=== PATIENT | female | born 1955 | race Caucasian/White ===

== ENCOUNTER 2016-12-17 09:55 | Emergency (ER) | payer BC ==
[2016-12-17 10:05] VITALS: BP 151/83
--- NOTE | 2016-12-17 10:26 | UC ---
Shoulder Pain HPI - HPI Summary HPI Summary: 61 Y/O female being seen for C/O left shoulder pain with decreased range of motion. Unable to lift arm above chest level in any direction due to pain that radiates from anterior shoulder to left axilla. Denies injury or trauma. denies pain at rest. States hand feels "numb" at times. full movement and tactile feeling in hands during this visit. No swelling or bruising. blood pressure is elevated. Pt states that her PCP has asked her to monitor and she has a follow up appointment this week to review serial blood pressures. Medications reviewed at this visit. - History of Current Complaint Chief Complaint: UCUpperExtremity Stated Complaint: SHOULDER PAIN Time Seen by Provider: 12/17/16 09:59 Hx Obtained From: Patient ?: No Onset/Duration: Sudden Onset Timing: Constant Severity Initially: Mild Severity Currently: Mild Location Of Pain: Is Discrete @ - L shoulder to axilla Pain Intensity: 3 Pain Scale Used: 0-10 Numeric Character: Sharp Aggravating Factor(s): Movement Alleviating Factor(s): Rest - Risk Factors Non-Orthopedic Risk Factor: Negative DVT Risk Factors: Negative Septic Arthritis Risk Factor: Negative - Allergies/Home Medications Allergies/Adverse Reactions: Allergies Allergy/AdvReac Type Severity Reaction Status Date / Time No Known Allergies Allergy Verified 11/07/14 09:01 Home Medications: Home Medications Jordan-3 Fatty Acids [Jordan 3 1000 mg] 1,000 mg PO DAILY 12/17/16 [History Confirmed 12/17/16] PMH/Surg Hx/FS Hx/Imm Hx Previously Healthy: Yes Respiratory History: Asthma - no current exacerbation - Surgical History Surgical History: Yes Surgery Procedure, Year, and Place: tubal ligation. sinus surgery - Family History Known Family History: Positive: Cardiac Disease, Hypertension - Social History Alcohol Use: Weekly Substance Use Type: None Smoking Status (MU): Never Smoked Tobacco Review of Systems Constitutional: Negative Skin: Negative Eyes: Negative ENT: Negative Respiratory: Negative Cardiovascular: Negative Gastrointestinal: Negative Genitourinary: Negative Motor: Decreased ROM - Left arm Neurovascular: Negative Musculoskeletal: Negative Neurological: Negative Psychological: Negative All Other Systems Reviewed And Are Negative: Yes Physical Exam Triage Information Reviewed: Yes Appearance: Well-Appearing Vital Signs: Initial Vital Signs Temp 97.7 F 12/17/16 09:59 Pulse 87 12/17/16 09:59 Resp 18 12/17/16 09:59 BP 151/83 12/17/16 09:59 Pulse Ox 97 12/17/16 09:59 Vital Signs Reviewed: Yes Eye Exam: Normal Eyes: Positive: Conjunctiva Clear ENT Exam: Normal Neck exam: Normal Respiratory Exam: Normal Respiratory: Positive: Lungs clear Cardiovascular Exam: Normal Cardiovascular: Positive: RRR Abdominal Exam: Normal Abdomen Description: Positive: Nontender Musculoskeletal Exam: Other Musculoskeletal: Positive: ROM Limited @ - Left arm Neurological: Positive: Alert Psychological Exam: Normal Skin Exam: Normal Shoulder Course/Dx - Differential Dx/Diagnosis Differential Diagnosis/HQI/PQRI: Arthritis, Bursitis, Sprain, Strain, Tendonitis Provider Diagnoses: Shoulder strain Discharge - Discharge Plan Condition: Stable Disposition: HOME Patient Education Materials: Osteoarthritis (ED), Shoulder Pain (ED) Referrals: Laura Laurent MD [Primary Care Provider] - Maryjane Trevizo MD [Medical Doctor] - Additional Instructions: Your shoulder x ray shows no acute injury to the bones of your shoulder. Please follow with Dr Trevizo (orthopedics). Return to the ER for worsening pain or loss of strength / sensation to arm. Follow up with your primary care physician for blood pressure check. You may continue Ibuprofen , do not exceed 600mg every 8 hours.
--- NOTE | 2016-12-17 11:03 | RAD ---
HISTORY: Left shoulder pain COMPARISONS: None VIEWS: 5, Frontal internal rotation, external rotation, outlet, and axillary views of the left shoulder FINDINGS: BONE DENSITY: Normal. BONES: There is no displaced fracture. JOINTS: There is mild osteoarthritis of the left AC joint. ALIGNMENT: There is no dislocation. SOFT TISSUES: Unremarkable. OTHER FINDINGS: None. IMPRESSION: NO ACUTE OSSEOUS INJURY. IF SYMPTOMS PERSIST, RECOMMEND REPEAT IMAGING.
== END 2016-12-17 11:18 | disposition home or self-care (01) ==
LOC: UCEAST 09:55
DX: S46.912A Strain of unspecified muscle, fascia and tendon at shoulder and upper arm level, left arm, initial encounter (principal); X58.XXXA Exposure to other specified factors, initial encounter; J45.909 Unspecified asthma, uncomplicated
CPT/HCPCS: 99211; G0463

== ENCOUNTER 2018-01-08 06:48 | Inpatient (IN) | payer BC ==
--- NOTE | 2018-01-08 07:24 | ED ---
Shortness of Breath - HPI Summary HPI Summary: Patient is a 62 y/o F w/ c/o SOB upon exertion onsetting yesterday morning. She reports that tasks such as getting up to let the dog out of the house produces SOB, tiredness, wheezing and cold sweats. Patient reports that lying flat does not produce SOB but notes that she feels dizzy for some time when going to lie down. Patient notes RLE pain yesterday and she is concerned it is swollen. She denies recent long travel/long car rides/flights. Patient denies N/V/D. In the room, while lying in the bed, she states she feels funny. Patient denies Hx of HTN, diabetes, and HLD. PMHx of asthma is noted. Current Sx are reported to be worse than her typical asthma attacks. Patient states that she took her inhaler this morning with no relief in Sx. On triage, pain is denied. Home medications and allergies are noted. In room, vitals are 113 pulse, 97% o2, and 128/107 BP. Initially, patient was 87% on RA and was placed on 2LNC, which improved o2 to 97%. - History of Current Complaint Chief Complaint: EDShortnessOfBreath Time Seen by Provider: 01/08/18 07:10 Hx Obtained From: Patient Onset/Duration: Lasting Days - yesterday morning Current Severity: None - pain denied Aggrevating Factors: Other - exertion Alleviating Factors: Nothing Associated Signs & Symptoms: Wheezing, Diaphoresis - "cold sweats", Edema - RLE - Allergy/Home Medications Allergies/Adverse Reactions: Allergies Allergy/AdvReac Type Severity Reaction Status Date / Time No Known Allergies Allergy Verified 01/08/18 07:13 PMH/Surg Hx/FS Hx/Imm Hx Endocrine/Hematology History: Denies: Hx Diabetes Cardiovascular History: Denies: Hx Hypertension Respiratory History: Reports: Hx Asthma - Surgical History Surgery Procedure, Year, and Place: tubal ligation. sinus surgery - Immunization History Immunizations Up to Date: Yes Infectious Disease History: No Infectious Disease History: Denies: Hx Clostridium Difficile, Hx Hepatitis, Hx Human Immunodeficiency Virus (HIV), Hx of Known/Suspected MRSA, Hx Shingles, Hx Tuberculosis, Traveled Outside the [place] in Last 30 Days - Family History Known Family History: Positive: Cardiac Disease, Hypertension - Social History Alcohol Use: Weekly Substance Use Type: Reports: None Smoking Status (MU): Never Smoked Tobacco Review of Systems Positive: Fatigue - tiredness , Skin Diaphoresis Positive: Shortness Of Breath, Other - wheezing Negative: Vomiting, Diarrhea, Nausea Positive: Edema - RLE , Other - RLE pain Neurological: Other - dizziness All Other Systems Reviewed And Are Negative: Yes Physical Exam - Summary Physical Exam Summary: VITAL SIGNS: Reviewed. GENERAL: Patient is a well-developed and nourished female who is lying comfortable in the stretcher. Patient has nasal cannula and is in some slight respiratory distress but patient is capable of speaking in complete sentences. HEAD AND FACE: No signs of trauma. No ecchymosis, hematomas or skull depressions. No sinus tenderness. EYES: PERRLA, EOMI x 2, No injected conjunctiva, no nystagmus. EARS: Hearing grossly intact. Ear canals and tympanic membranes are within normal limits. MOUTH: Oropharynx within normal limits. NECK: Supple, trachea is midline, no adenopathy, no JVD, no carotid bruit, no c- spine tenderness, neck with full ROM. CHEST: Symmetric, no tenderness at palpation LUNGS: Clear to auscultation bilaterally. No wheezing or crackles. CVS: Regular rate and rhythm, S1 and S2 present, no murmurs or gallops appreciated. ABDOMEN: Soft, non-tender. No signs of distention. No rebound no guarding, and no masses palpated. Bowel sounds are normal. EXTREMITIES: FROM in all major joints, no edema, no cyanosis or clubbing. There is no calf tenderness and negative Homans sign. NEURO: Alert and oriented x 3. No acute neurological deficits. Speech is normal and follows commands. SKIN: Dry and warm Triage Information Reviewed: Yes Vital Signs On Initial Exam: Initial Vitals Temp Pulse Resp BP Pulse Ox 97.4 F 123 24 119/95 92 01/08/18 06:50 01/08/18 06:50 01/08/18 06:50 01/08/18 06:50 01/08/18 06:50 Vital Signs Reviewed: Yes Diagnostics - Vital Signs Vital Signs Temp Pulse Resp BP Pulse Ox 01/08/18 06:50 97.4 F 123 24 119/95 92 - Laboratory Result Diagrams: 01/08/18 07:32 01/09/18 05:20 Lab Statement: Any lab studies that have been ordered have been reviewed, and results considered in the medical decision making process. - Radiology CXR Xray Interpretation: No Acute Changes Radiology Interpretation Completed By: Radiologist - stigmata of obstructive lung disease; no acute pulmonary or cardiac process evident. This report was reviewed by ed physician. - CT CTA Chest/Thorax CT Interpretation: Positive (See Comments) CT Interpretation Completed By: Radiologist - Large saddle embolus involving both main pulmonary arteries extending into both lower lobe pulmonary arteries. Other scattered filling defects are noted in the left upper lobe and right middle lobe pulmonary arteries. This report was reviewed by ed physician. - EKG 0730 Cardiac Rate: Tachycardia - rate of 112 BPM EKG Rhythm: Sinus Tachycardia EKG Interpretation: no ST elevation, normal axis Re-Evaluation - Re-Evaluation First Eval Re-Evaluation Time: 08:44 Change: Unchanged Comment: Discussed results of CTA with patient as well as further plans of care. Patient will likely be admitted for further workup. Benefits of blood thinners and TPA were discussed as well. Patient understands and is agreeable with this plan. Patient has no history of bleeding, recent surgeries, seizures, CVA. Course/Dx - Course Assessment/Plan: This patient is a 62-year-old female who presents to the emergency department with a chief complaint of having shortness of breath. She reports that the shortness of breath started yesterday morning when she was walking to the door. The shortness of breath usually is on exertion. The patient has history of asthma which is well controlled and she only uses an inhaler occasionally. She denies any wheezing, denies any coughing, denies any chest pain. She denies any recent traveling however she reports some pain in the right lower extremity yesterday. On arrival the patient was saturating 87% therefore the patient was placed in 2 L of oxygen. She has some respiratory distress but she is able to speak in full sentences. The physical exam: Lungs are clear to auscultation bilateral. She has no wheezing or crackles. There is no calf tenderness and negative Homans sign. EKG is a sinus tachycardia [address] elevations. Positive right side deviation. Blood work without any significant abnormality except for WBCs of 10.9, platelets 135, d- dimer 1050, glucose 129, lactic acid 2.2, troponin 0.25, BP 242. Chest x-ray impression: Stigmata of obstructive lung disease. No acute pulmonary or cardiac process. Chest CT impression large central emboli involving both main pulmonary arteries extending into both lower lobe pulmonary arteries. Otherwise is currently filling defects are noted in the left upper lobe and the right middle lobe pulmonary arteries. The patient was started with a heparin drip and heparin bolus. An echocardiogram was ordered. This will confirm the right side straining. I spoke with the patient about getting tPA and heparin which increases the risk of bleeding. Patient has no history of bleeding, recent surgeries, seizures, CVA. I discussed the case with Dr. Ghotra on the ICU services and he will come and talk to the patient again to see if she wants to give the TPA at this point. I believe that the patient would benefit for TPA at this point. She is also accepted to the ICU services under Dr. Ghotra s services. At this point the patient is hemodynamically stable alert and oriented 3. The patients care will continue with Dr. Ghotra at this point. 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 Foss was consulted on patient's case at 914. He accepts patient for admission to [facility] [place] - Critical Care Time Critical Care Time: 75-104 min Discharge - Sign-Out/Discharge Documenting (check all that apply): Patient Departure - admit - Discharge Plan Condition: Fair Disposition: ADMITTED TO [facility] - Billing Disposition and Condition Condition: FAIR Disposition: Admitted to [facility] - Attestation Statements Document Initiated by Scribe: Yes Documenting Scribe: Sarath Del Cid Provider For Whom Kadeem is Documenting (Include Credential): Elbert Hung MD Scribe Attestation: I, Sarath Del Cid, scribed for Elbert Hung MD on 01/09/18 at 0804. Scribe Documentation Reviewed: Yes Provider Attestation: The documentation as recorded by the Sarath adler accurately reflects the service I personally performed and the decisions made by me, Elbert Hung MD
[2018-01-08 07:43] LABS: ABS Basophils 0.1 10^3/ul (0-0.2); ABS Eosinophils 0.2 10^3/ul (0-0.6); ABS Lymphocytes 1.7 10^3/ul (1.0-4.8); ABS Monocytes 0.6 10^3/ul (0-0.8); ABS Neutrophils 8.4 10^3/ul (1.5-7.7); ABS Nucleated RBC 0 10^3/ul; Eosinophil % 1.6 % (0-6); Hematocrit 42 % (35-47); Lymphocyte % 15.7 % (25-47); Mean Corpuscular HGB Conc 34 g/dl (31-36); Mean Corpuscular Hemoglobin 32 pg (27-31); Mean Corpuscular Volume 95 fL (80-97); Mean Platelet Volume 7.8 um3 (7.4-10.4); Nucleated Red Blood Cells % 0; Platelet Count 135 10^3/ul (150-450); Red Blood Count 4.38 10^6/ul (4.00-5.40); Red Cell Distribution Width 14 % (10.5-15); White Blood Count 10.9 10^3/ul (3.5-10.8)
[2018-01-08 07:58] LABS: EGFR Non-African American 62.2 (>60)
[2018-01-08] MEDS ORDERED: Iohexol 350* (CONTRAST) 500 ML MDV IV ONE (08:02)
--- NOTE | 2018-01-08 08:09 | RAD ---
INDICATION: Shortness of breath worsening over the past 2 days. History of asthma. COMPARISON: September 23, 2005 TECHNIQUE: Dual energy PA and routine lateral views of the chest were obtained. REPORT: Elevated lung volumes. Costochondral calcifications noted. No focal pulmonary lesions or alveolar consolidation. Rarefaction of mid to upper lung zone interstitial markings. Negative for pleural effusion or pneumothorax. The heart, pulmonary vasculature, and mediastinal contours are unremarkable. Thoracic degenerative spondylosis. IMPRESSION: #. Stigmata of obstructive lung disease. No acute pulmonary or cardiac process evident.
--- NOTE | 2018-01-08 08:39 | RAD ---
Indication: Shortness of breath, hypoxia. Contrast: Administered 71.1 ml of OMNIPAQUE 350 mg/ml CTA of the chest performed after IV contrast administration. Coronal and sagittal reconstructed images were obtained. The pulmonary arterial tree is well opacified. There is a saddle embolus crossing both left and right pulmonary arteries. Filling defects are noted in the right lower lobe artery. Filling defects are noted in the left lower lobe pulmonary artery. This extends into the segmental arteries. There is likely clot in the left upper lobe pulmonary arteries as well as in the right middle lobe pulmonary arteries. The thoracic aorta demonstrates no evidence of aortic dissection or aneurysmal dilatation. There is no mediastinal adenopathy noted. The trachea and major bronchi are patent. The lung escamilla show no pleural fluid, pneumonia or pneumothorax. The visualized abdominal organs are unremarkable. IMPRESSION: Large saddle embolus involving both main pulmonary arteries extending into both lower lobe pulmonary arteries. Other scattered filling defects are noted in the left upper lobe and right middle lobe pulmonary arteries.
[2018-01-08] MEDS ORDERED: Perflutren Lipid Microsphere* 3 ML VIAL ONE (09:12)
[2018-01-08] MEDS ORDERED: Heparin VIAL(*) 5000 UNITS/ML VIAL (FIVE THOUSAND) ONE (09:36)
--- NOTE | 2018-01-08 09:52 | HP ---
H&P (Free Text) History and Physical: [facility] History & Physical CC: Shortness of breath HPI: 62F with asthma presents with shortness of breath. The patient states that started having her symptoms yesterday morning. They are associated with dizziness and feeling light headed. She reports that dyspnea is worse with exertion. No chest pain. No cough. No fever or chills. She denies orthopnea and pnd. She denies any leg edema. In the ER the patient was found to be hypoxic and tachycardic. She was sent to CT and a large saddle embolism was found. She denies any recent travel. No recent surgeries. No history of malignancy. No history of prior blood clots. She has had age appropriate cancer screening. ROS - as per HPI PMHx - asthma PSHx - tubal ligation, sinus surgery All - nkda SocHx - no drugs, no tobacco, rare etoh FamHx - htn, heart disease PE Vital Signs: Temp Pulse Resp BP Pulse Ox 97.4 F 112 22 124/93 96 01/08/18 06:50 01/08/18 09:01 01/08/18 09:01 01/08/18 09:01 01/08/18 09:01 Gen - NAD, anxious HEENT - ncat, eomi, perrl Neck - mild jvd CV - s1/s2, tachy, no murmur Lungs - cta, no wheeze ABd - soft, nt, nd Ext - no cce Neuro - non-focal Labs Laboratory Results - last 24 hr 01/08/18 01/08/18 01/08/18 07:31 07:31 07:31 WBC RBC Hgb Hct MCV MCH MCHC RDW Plt Count MPV Neut % (Auto) Lymph % (Auto) Desha % (Auto) Eos % (Auto) Baso % (Auto) Absolute Neuts (auto) Absolute Lymphs (auto) Absolute Monos (auto) Absolute Eos (auto) Absolute Basos (auto) Absolute Nucleated RBC Nucleated RBC % APTT 25.1 L D-Dimer, Quantitative > 1050 H Sodium 140 Potassium 3.6 Chloride 106 Carbon Dioxide 26 Anion Gap 8 BUN 14 Creatinine 0.91 Est GFR ( Amer) 75.3 Est GFR (Non-Af Amer) 62.2 BUN/Creatinine Ratio 15.4 Glucose 129 H Lactic Acid Calcium 9.0 Total Bilirubin 0.70 AST 21 ALT 18 Alkaline Phosphatase 101 Total Creatine Kinase 72 CK-MB (CK-2) 4.1 Troponin I 0.25 H* C-Reactive Protein 22.99 H B-Natriuretic Peptide 242 H Total Protein 6.9 Albumin 4.0 Globulin 2.9 Albumin/Globulin Ratio 1.4 01/08/18 01/08/18 07:32 07:32 WBC 10.9 H RBC 4.38 Hgb 14.0 Hct 42 MCV 95 MCH 32 H MCHC 34 RDW 14 Plt Count 135 L MPV 7.8 Neut % (Auto) 76.8 Lymph % (Auto) 15.7 L Desha % (Auto) 5.4 Eos % (Auto) 1.6 Baso % (Auto) 0.5 Absolute Neuts (auto) 8.4 H Absolute Lymphs (auto) 1.7 Absolute Monos (auto) 0.6 Absolute Eos (auto) 0.2 Absolute Basos (auto) 0.1 Absolute Nucleated RBC 0 Nucleated RBC % 0 APTT D-Dimer, Quantitative Sodium Potassium Chloride Carbon Dioxide Anion Gap BUN Creatinine Est GFR ( Amer) Est GFR (Non-Af Amer) BUN/Creatinine Ratio Glucose Lactic Acid 2.2 H* Calcium Total Bilirubin AST ALT Alkaline Phosphatase Total Creatine Kinase CK-MB (CK-2) Troponin I C-Reactive Protein B-Natriuretic Peptide Total Protein Albumin Globulin Albumin/Globulin Ratio Imaging CXR 01/08/18 IMPRESSION: #. Stigmata of obstructive lung disease. No acute pulmonary or cardiac process evident. CT Chest w/contrast 01/08/18 IMPRESSION: Large saddle embolus involving both main pulmonary arteries extending into both lower lobe pulmonary arteries. Other scattered filling defects are noted in the left upper lobe and right middle lobe pulmonary arteries. EKG - NSR, Right axis deviation, tachy Impression 62F with asthma presents with unprovoked submassive PE Neuro - pain control CV - - check tte for right heart strain Pulm - asthma, hypoxia - hypoxia 2/2 pe - supplemental o2 and wean as tolerated - nebs prn ID - no evidence of infection GI - diet as tolerated Renal - monitor i/o - monitor lytes Heme - saddle pe - submassive - unprovoked by history - will need AC for extended period - will need hypercoaguable work up at later date - patient reports age appropriate cancer screening - heparin gtt with goal ptt 60 - 90 - likely bridge to novel anti-coagulant - monitor for bleeding Endo - check fs Lines - piv Full Code Admit to ICU Critical Care Time 50 mins
[2018-01-08] MEDS: Heparin DRIP 25,000 UNITS(*) 25,000 UNITS/500 ML BAG IV SCH (09:58)
[2018-01-08 10:08] LABS: INR 0.91 (0.77-1.02)
[2018-01-08 10:17] LABS: EGFR Non-African American 68.3 (>60)
--- NOTE | 2018-01-08 11:05 | ECHO ---
Patient: [facility] Rec#: [id number] : 1955 Date: 01/08/2018 Age: 62y Height: 163 cm / 64.2 in Weight: 178 kg / 392.3 lbs Sex: F BSA: 2.61 Room#: ED3 Admit Date#: 01/08/2018 Type: Inpatient Referring: Dyan Graham MD Reading: Lino Clarke MD [facility] Coordinator: Paula Hudson RDCS CC: Laura Laurent MD Transthoracic Echocardiogram Indication: Pulmonary Embolism BP: 130/99 HR: 114 Rhythm: NSR Findings History: Asthma,abn EKG. Definity used to enhance images. Technical Comments: The study is technically difficult. Completed at 1015. The study is technically limited due to poor acoustic windows. Left Ventricle: The left ventricular chamber size is decreased. Global left ventricular wall motion and contractility are within normal limits. There is normal left ventricular systolic function. The estimated ejection fraction is 55-60%. The assessment of diastolic function is non-diagnostic. Left Atrium: The left atrial chamber size is normal. Right Ventricle: The right ventricle is slightly dilated. The right ventricular global systolic function is mildly to moderately reduced. Flattened in systole consistent with right ventricular pressure overload. Right Atrium: The right atrial cavity size is normal. Aortic Valve: The aortic valve structure is not well visualized. There is no evidence of aortic stenosis. Mitral Valve: The mitral valve leaflets appear normal. There is no evidence of mitral regurgitation. There is no evidence of mitral stenosis. Tricuspid Valve: The tricuspid valve leaflets are normal. There is trace tricuspid regurgitation. Unable to estimate the right ventricular systolic pressure. There is no tricuspid stenosis. Pulmonic Valve: The pulmonic valve structure is not well visualized. Pericardium: The pericardium appears normal. Aorta: There is no dilatation of the ascending aorta. The aortic arch is not well visualized. There is no dilation of the aortic root. Pulmonary Artery: The main pulmonary artery appears normal. Venous: The venous system is not well visualized. Contrast: Definity was used to optimize study. A total of 4.5 ml used. Intravenous contrast was used to enhance endocardial border definition. Summary: There was not any prior study for comparison. Conclusions Global left ventricular wall motion and contractility are within normal limits. There is normal left ventricular systolic function. The estimated ejection fraction is 55-60%. The right ventricle is slightly dilated. The right ventricular global systolic function is mildly to moderately reduced. Flattened in systole consistent with right ventricular pressure overload. There is no evidence of aortic stenosis. There is no evidence of mitral regurgitation. There is trace tricuspid regurgitation. Unable to estimate the right ventricular systolic pressure. The pericardium appears normal. Measurements Name Value Normal Range RVIDd (AP) 2D 3.4 cm (0.9 - 2.6) IVSd (2D) 0.8 cm (0.6 - 1) LVPWd (2D) 0.6 cm (0.6 - 1) LVIDd (2D) 3.1 cm (3.6 - 5.4) LVIDs (2D) 2.7 cm - LV FS (2D) 13 % (25 - 45) Aortic Annulus 1.9 cm (1.4 - 2.6) Ao root diameter (2D) 2.9 cm (2.1 - 3.5) Ascending Ao 2.8 cm (2.1 - 3.4) LA dimension (AP) 2D 2.3 cm (2.3 - 3.8) Name Value Normal Range MV E-wave Vmax 0.7 m/sec - MV deceleration time 114 msec - MV A-wave Vmax 1 m/sec - MV E:A ratio 0.7 ratio - LV septal e' Vmax 0.61 m/sec - LV lateral e' Vmax 0.15 m/sec - Name Value Normal Range AV Vmax 1.1 m/sec - AV VTI 18.9 cm - AV peak gradient 5 mmHg - AV mean gradient 3 mmHg - LVOT Vmax 1 m/sec - LVOT VTI 14.6 cm - LVOT peak gradient 4 mmHg - LVOT mean gradient 2 mmHg - Name Value Normal Range PV Vmax 0.7 m/sec - PV peak gradient 2 mmHg -
[2018-01-08] MEDS: Venlafaxine EXT RELEASE CAP* 37.5 MG PO SCH (12:38)
[2018-01-08 12:47] LABS: Urine Appearance Clear; Urine Blood 1+ (Negative); Urine Color Straw; Urine Ketones Negative (Negative); Urine Protein Negative (Negative); Urine Red Blood Cell Trace(0-2/hpf) (Absent); Urine Urobilinogen Negative (Negative); Urine White Blood Cell Absent (Absent)
--- NOTE | 2018-01-08 12:59 | RAD ---
INDICATION: Shortness of breath, hypoxia, tachycardia. History of bilateral pulmonary embolism. COMPARISON: No relevant prior exams available on the [facility] PACS for comparison. TECHNIQUE: Pérez scale, color Doppler, and spectral analysis of the deep veins of the BILATERAL lower extremities. Vessel compression, phasicity, and augmentation assessed. REPORT: The RIGHT common femoral, great saphenous, profunda femoral, and proximal segment of the femoral vein are patent. Gross occlusive thrombosis at the RIGHT femoral vein at the mid and distal segments as well as the popliteal vein and nonocclusive thrombosis at the paired posterior tibial and peroneal calf veins. The LEFT common femoral, great saphenous, profunda femoral, femoral, popliteal, peroneal, and posterior tibial veins are patent. IMPRESSION: #. Gross occlusive thrombosis at the RIGHT femoral vein at the mid and distal segments as well as the popliteal vein and nonocclusive thrombosis at the paired posterior tibial and peroneal calf veins. #. Negative for LEFT lower extremity DVT.
[2018-01-09 05:40] LABS: INR 0.95 (0.77-1.02)
[2018-01-09] MEDS ORDERED: Acetaminophen TAB* 325 MG ONE (05:51)
[2018-01-09] MEDS: Acetaminophen TAB* 325 MG PO PRN ×2 (06:07→11:59)
[2018-01-09 06:51] LABS: EGFR Non-African American 69.2 (>60)
[2018-01-09] MEDS: Venlafaxine EXT RELEASE CAP* 37.5 MG PO SCH (08:56)
--- NOTE | 2018-01-09 10:00 | PN ---
Date of Service: 01/09/18 Critical Care Services: 62F with asthma presents with submassive PE with cor pulmonale. 01/09: on heparin gtt. dyspnea mildly improved. Vital Signs: Temp Pulse Resp BP SpO2 FiO2 97 F 88 23 117/90 96 01/09/18 08:00 01/09/18 08:46 01/09/18 08:46 01/09/18 08:46 01/09/18 08:46 Physical Exam: Gen - NAD, anxious HEENT - ncat, eomi, perrl Neck - mild jvd CV - s1/s2, tachy, no murmur Lungs - cta, no wheeze ABd - soft, nt, nd Ext - no cce Neuro - non-focal Fluid Balance (Past 24 Hours): I= O= Net Intake & Output 01/07/18 01/08/18 01/09/18 01/10/18 06:59 06:59 06:59 06:59 Intake Total 836 296 Output Total 1775 400 Balance -939 -104 Weight 80.739 kg 84.2 kg Intake: Heparin 236 176 Oral 600 120 Output: Urine 1775 400 Other: Estimated Void Medium Labs: Laboratory Results - last 24 hr 01/08/18 01/08/18 01/08/18 09:53 09:53 12:30 INR (Anticoag Therapy) 0.91 APTT Sodium 139 Potassium 3.9 Chloride 105 Carbon Dioxide 25 Anion Gap 9 BUN 13 Creatinine 0.84 Est GFR ( Amer) 82.6 Est GFR (Non-Af Amer) 68.3 BUN/Creatinine Ratio 15.5 Glucose 115 H Calcium 9.1 Magnesium 2.1 Urine Color Straw Urine Appearance Clear Urine pH 6.0 Ur Specific [place] 1.020 Urine Protein Negative Urine Ketones Negative Urine Blood 1+ A Urine Nitrate Negative Urine Bilirubin Negative Urine Urobilinogen Negative Ur Leukocyte Esterase Negative Urine WBC (Auto) Absent Urine RBC (Auto) Trace(0-2/hpf) Ur Squamous Epith Cells Present A Urine Bacteria Absent Urine Glucose Negative 01/08/18 01/08/18 01/09/18 14:23 21:30 05:20 INR (Anticoag Therapy) 0.95 APTT 89.8 H 58.2 H 57.3 H Sodium Potassium Chloride Carbon Dioxide Anion Gap BUN Creatinine Est GFR ( Amer) Est GFR (Non-Af Amer) BUN/Creatinine Ratio Glucose Calcium Magnesium Urine Color Urine Appearance Urine pH Ur Specific [place] Urine Protein Urine Ketones Urine Blood Urine Nitrate Urine Bilirubin Urine Urobilinogen Ur Leukocyte Esterase Urine WBC (Auto) Urine RBC (Auto) Ur Squamous Epith Cells Urine Bacteria Urine Glucose 01/09/18 05:20 INR (Anticoag Therapy) APTT Sodium 141 Potassium 3.8 Chloride 106 Carbon Dioxide 28 Anion Gap 7 BUN 10 Creatinine 0.83 Est GFR ( Amer) 83.7 Est GFR (Non-Af Amer) 69.2 BUN/Creatinine Ratio 12.0 Glucose 113 H Calcium 8.5 L Magnesium 2.2 Urine Color Urine Appearance Urine pH Ur Specific [place] Urine Protein Urine Ketones Urine Blood Urine Nitrate Urine Bilirubin Urine Urobilinogen Ur Leukocyte Esterase Urine WBC (Auto) Urine RBC (Auto) Ur Squamous Epith Cells Urine Bacteria Urine Glucose Studies: TTE 01/09/18 Conclusions Global left ventricular wall motion and contractility are within normal limits. There is normal left ventricular systolic function. The estimated ejection fraction is 55-60%. The right ventricle is slightly dilated. The right ventricular global systolic function is mildly to moderately reduced. Flattened in systole consistent with right ventricular pressure overload. There is no evidence of aortic stenosis. There is no evidence of mitral regurgitation. There is trace tricuspid regurgitation. Unable to estimate the right ventricular systolic pressure. The pericardium appears normal. LE Doppler 01/08/18 #. Gross occlusive thrombosis at the RIGHT femoral vein at the mid and distal segments as well as the popliteal vein and nonocclusive thrombosis at the paired posterior tibial and peroneal calf veins. #. Negative for LEFT lower extremity DVT. CXR 01/08/18 IMPRESSION: #. Stigmata of obstructive lung disease. No acute pulmonary or cardiac process evident. CT Chest w/contrast 01/08/18 IMPRESSION: Large saddle embolus involving both main pulmonary arteries extending into both lower lobe pulmonary arteries. Other scattered filling defects are noted in the left upper lobe and right middle lobe pulmonary arteries. EKG - NSR, Right axis deviation, tachy Impression: 62F with asthma presents with unprovoked submassive PE, RLE DVT, Cor Pulmonale Plan: Neuro - pain control CV - cor pulmonale - TTE with RV pressure overload Pulm - asthma, hypoxia - hypoxia 2/2 pe - supplemental o2 and wean as tolerated - nebs prn ID - no evidence of infection GI - diet as tolerated Renal - monitor i/o - monitor lytes Heme - saddle pe, dvt - submassive - unprovoked by history - will need AC for extended period - will need hypercoaguable work up at later date - patient reports age appropriate cancer screening - heparin gtt with goal ptt 60 - 90 - likely bridge to novel anti-coagulant - monitor for bleeding Endo - check fs Lines - piv Full Code Critical Care Time: 55 Mins
[2018-01-09] MEDS: Heparin DRIP 25,000 UNITS(*) 25,000 UNITS/500 ML BAG IV SCH (10:12)
[2018-01-10 05:48] LABS: INR 0.98 (0.77-1.02)
[2018-01-10 06:06] LABS: EGFR Non-African American 73.3 (>60)
[2018-01-10] MEDS: Venlafaxine EXT RELEASE CAP* 37.5 MG PO SCH (07:57)
[2018-01-10] MEDS: Heparin DRIP 25,000 UNITS(*) 25,000 UNITS/500 ML BAG IV SCH (09:48)
[2018-01-10] MEDS: Acetaminophen TAB* 325 MG PO PRN ×2 (10:21→18:49)
[2018-01-10] MEDS: Rivaroxaban TAB(*) 15 MG PO SCH ×2 (11:21→20:05)
--- NOTE | 2018-01-10 17:10 | PN ---
Subjective Date of Service: 01/10/18 Interval History: Patient is feeling better daily with increased exercise tolerance. Persistent SOB on exertion. Patient denies CP, palpitations, dizziness, presyncope, dysuria , abdominal pain, diarrhea, or other pain. Family History: Unchanged from Admission Social History: Unchanged from Admission Past Medical History: Unchanged from Admission Objective Active Medications: Acetaminophen (Tylenol Tab*) 650 mg PO Q6H PRN PRN Reason: PAIN Last Admin: 01/10/18 10:21 Dose: 650 mg Rivaroxaban (Xarelto(*)) 15 mg PO BID [facility] Last Admin: 01/10/18 11:21 Dose: 15 mg Venlafaxine HCl (Effexor Xr Cap*) 37.5 mg PO DAILY [facility] Last Admin: 01/10/18 07:57 Dose: 37.5 mg Vital Signs - 8 hr 01/10/18 01/10/18 01/10/18 09:23 10:00 12:00 Temperature 98.7 F 99.4 F Pulse Rate 96 83 Respiratory 21 18 Rate Blood Pressure 111/79 118/83 (mmHg) O2 Sat by Pulse 95 98 Oximetry 01/10/18 15:39 Temperature 98.4 F Pulse Rate 85 Respiratory 18 Rate Blood Pressure 110/72 (mmHg) O2 Sat by Pulse 98 Oximetry Oxygen Devices in Use Now: None Appearance: Patient is a 62yo female who appears stated age and is sitting in the bed in [facility]. Eyes: No Scleral Icterus, PERRLA Ears/Nose/Mouth/Throat: NL Teeth, Lips, Gums, Clear Oropharnyx, Mucous Membranes Moist Neck: NL Appearance and Movements; NL JVP, Trachea Midline Respiratory: Symmetrical Chest Expansion and Respiratory Effort, Clear to Auscultation Cardiovascular: NL Sounds; No Murmurs; No JVD, RRR, No Edema Abdominal: NL Sounds; No Tenderness; No Distention, No Hepatosplenomegaly Lymphatic: No Cervical Adenopathy Extremities: No Edema, No Clubbing, Cyanosis Skin: No Rash or Ulcers, No Nodules or Sclerosis Neurological: Alert and Oriented x 3, NL Sensation, NL Muscle Strength and Tone , - - CN II-XII intact. Result Diagrams: 01/08/18 07:32 01/10/18 05:24 Microbiology and Other Data: Microbiology 01/08/18 10:50 Nasal Screen MRSA (PCR) - Final Nasal Mrsa Not Detected Assess/Plan/Problems-Billing Assessment: Patient is a 62yo female with no pertinent PMH who is admitted with an unprovoked saddle PE who is improving and has been transitioned to oral anticoagulation. - Patient Problems (1) Saddle embolus of pulmonary artery with acute cor pulmonale Current Visit: Yes Status: Acute Code(s): I26.02 - SADDLE EMBOLUS OF PULMONARY ARTERY WITH ACUTE COR PULMONALE SNOMED Code(s): 85134137 Comment: - Improving. - Hypoxia resolved. - BP stable. - Transitioned to Xarelto - Repeat echo in AM to assess RV function (2) Hypoxia Current Visit: Yes Status: Acute Code(s): R09.02 - HYPOXEMIA SNOMED Code(s ): 068305617 Comment: - Resolved (3) DVT prophylaxis Current Visit: Yes Status: Acute Code(s): OZZ6700 - SNOMED Code(s): 252509879 Comment: - Xarelto - DVT present (4) Full code status Current Visit: Yes Status: Acute Code(s): Z78.9 - OTHER SPECIFIED HEALTH STATUS SNOMED Code(s): 777907980
[2018-01-11 06:39] LABS: ABS Basophils 0.1 10^3/ul (0-0.2); ABS Eosinophils 0.2 10^3/ul (0-0.6); ABS Lymphocytes 1.8 10^3/ul (1.0-4.8); ABS Monocytes 0.4 10^3/ul (0-0.8); ABS Neutrophils 4.4 10^3/ul (1.5-7.7); ABS Nucleated RBC 0 10^3/ul; Eosinophil % 3.1 % (0-6); Hematocrit 40 % (35-47); Hemoglobin 13.4 g/dl (12.0-16.0); Lymphocyte % 26.6 % (25-47); Mean Corpuscular HGB Conc 34 g/dl (31-36); Mean Corpuscular Hemoglobin 32 pg (27-31); Mean Corpuscular Volume 95 fL (80-97); Mean Platelet Volume 8.2 um3 (7.4-10.4); Nucleated Red Blood Cells % 0; Platelet Count 160 10^3/ul (150-450); Red Blood Count 4.18 10^6/ul (4.00-5.40); Red Cell Distribution Width 14 % (10.5-15); White Blood Count 6.9 10^3/ul (3.5-10.8)
[2018-01-11 06:53] LABS: EGFR Non-African American 67.3 (>60)
[2018-01-11] MEDS ORDERED: Albuterol 2.5 MG/3 ML NEB.SOL* (0.083%) INH PRN (08:11)
[2018-01-11] MEDS: Venlafaxine EXT RELEASE CAP* 37.5 MG PO SCH (08:53)
[2018-01-11] MEDS: Rivaroxaban TAB(*) 15 MG PO SCH ×2 (08:53→19:34)
--- NOTE | 2018-01-11 14:56 | ECHO ---
Patient: PATEL LR [facility] Rec#: [id number] : 1955 Date: 01/11/2018 Age: 62y Height: 163 cm / 64.2 in Weight: 84.3 kg / 185.8 lbs Sex: F BSA: 1.9 Room#: [facility] Admit Date#: 01/08/2018 Type: Inpatient Referring: Rafa Gallego Reading: Rob Clements MD Sales Representative Printing: Daphnie Wall RN RDCS CC: Laura Laurent MD Transthoracic Echocardiogram Indication: Pulmonary embolism BP: 115/89 HR: 90 Rhythm: NSR Findings History: Asthma, admitted with pulmonary embolism. This is a LIMITED echo to re-evaluate RV function. A complete echocardiogram was done on 01/08/2018. Technical Comments: The study quality is fair. The study is technically limited due to patient body habitus. Completed at 0920. Left Ventricle: Global left ventricular wall motion and contractility are within normal limits. There is normal left ventricular systolic function. The estimated ejection fraction is 55-60%. There is septal flattening of the interventricular septum consistent with right ventricular volume or pressure overload. Right Ventricle: The right ventricle wall thickness is mildly increased. The right ventricular cavity size is normal. The right ventricular global systolic function is moderately reduced.The apical free wall and the basal free wall are the best preserved. Tricuspid Valve: The tricuspid valve structure is not well visualized. There is trace tricuspid regurgitation. Unable to estimate the right ventricular systolic pressure. Venous: The inferior vena cava appears normal in size. There is a greater than 50% respiratory change in the inferior vena cava dimension. Conclusions Focused study to assess RV function. Global left ventricular wall motion and contractility are within normal limits. The estimated ejection fraction is 55-60%. There is septal flattening of the interventricular septum consistent with right ventricular volume or pressure overload. The right ventricle wall thickness is mildly increased. The right ventricular global systolic function is moderately reduced.The apical free wall and the basal free wall are the best preserved. There is trace tricuspid regurgitation. Unable to estimate the right ventricular systolic pressure. Mild interval improvement in RV function c/t 01/08/18 when the RV appeared to be more hypokinetic and had dyskinetic segments and more septal flattening. Measurements Name Value Normal Range RVIDd (AP) 2D 2.6 cm (0.9 - 2.6) RVDdMajor (2D) 2.8 cm (2.2 - 4.4) RVAW (2D) 0.9 cm (0.2 - 0.5) Name Value Normal Range IVC diameter 1.6 cm -
--- NOTE | 2018-01-11 17:58 | PN ---
Subjective Date of Service: 01/11/18 Interval History: Patient feeling well. Improved walking distance. Occasional vertiginous sensation with laying flat. Denies CP, SOB at rest, abdominal pain, numbness or tingling in the hands or feet, nausea, or other pain. Patient very anxious about discharge and would like to have LE DVT re-evaluated before discharge. Family History: Unchanged from Admission Social History: Unchanged from Admission Past Medical History: Unchanged from Admission Objective Active Medications: Acetaminophen (Tylenol Tab*) 650 mg PO Q6H PRN PRN Reason: PAIN Last Admin: 01/10/18 18:49 Dose: 650 mg Albuterol (Ventolin 2.5 Mg/3 Ml Neb.Vikki*) 2.5 mg INH Q4H PRN PRN Reason: SOB/WHEEZING Rivaroxaban (Xarelto(*)) 15 mg PO BID [facility] Last Admin: 01/11/18 08:53 Dose: 15 mg Venlafaxine HCl (Effexor Xr Cap*) 37.5 mg PO DAILY [facility] Last Admin: 01/11/18 08:53 Dose: 37.5 mg Vital Signs - 8 hr 01/11/18 01/11/18 11:12 15:15 Temperature 97.5 F 97.9 F Pulse Rate 93 88 Respiratory 18 14 Rate Blood Pressure 107/70 110/71 (mmHg) O2 Sat by Pulse 97 97 Oximetry Oxygen Devices in Use Now: None Appearance: Patient is a 62yo female who appears stated age and is sitting in the bed in [facility]. Eyes: No Scleral Icterus, PERRLA Ears/Nose/Mouth/Throat: NL Teeth, Lips, Gums, Clear Oropharnyx, Mucous Membranes Moist Neck: NL Appearance and Movements; NL JVP, Trachea Midline Respiratory: Symmetrical Chest Expansion and Respiratory Effort, Clear to Auscultation Cardiovascular: NL Sounds; No Murmurs; No JVD, RRR, No Edema Abdominal: NL Sounds; No Tenderness; No Distention, No Hepatosplenomegaly Lymphatic: No Cervical Adenopathy Extremities: No Clubbing, Cyanosis, - - Slight RLE edema greater than left. Skin: No Rash or Ulcers, No Nodules or Sclerosis Neurological: Alert and Oriented x 3, NL Sensation, NL Gait, NL Muscle Strength and Tone, - - CN II-XII intact. Result Diagrams: 01/11/18 06:24 01/11/18 06:24 Microbiology and Other Data: Microbiology 01/08/18 10:50 Nasal Screen MRSA (PCR) - Final Nasal Mrsa Not Detected Assess/Plan/Problems-Billing Assessment: Patient is a 62yo female with no pertinent PMH who is admitted with an unprovoked saddle PE who is improving and has been transitioned to oral anticoagulation. - Patient Problems (1) Saddle embolus of pulmonary artery with acute cor pulmonale Current Visit: Yes Status: Acute Code(s): I26.02 - SADDLE EMBOLUS OF PULMONARY ARTERY WITH ACUTE COR PULMONALE SNOMED Code(s): 29446382 Comment: - Improving. - Hypoxia resolved. - BP stable. - Transitioned to Xarelto - Improvement in RV function. Repeat Echo again at 3 months. (2) Hypoxia Current Visit: Yes Status: Acute Code(s): R09.02 - HYPOXEMIA SNOMED Code(s ): 628696548 Comment: - Resolved (3) DVT prophylaxis Current Visit: Yes Status: Acute Code(s): YIY9949 - SNOMED Code(s): 917133135 Comment: - Xarelto - DVT present. Will re-evaluate in AM to assess for progression. (4) Full code status Current Visit: Yes Status: Acute Code(s): Z78.9 - OTHER SPECIFIED HEALTH STATUS SNOMED Code(s): 714233974 Status and Disposition: Inpatient. Hopeful discharge tomorrow.
[2018-01-12 06:51] LABS: EGFR Non-African American 64.7 (>60)
[2018-01-12] MEDS: Rivaroxaban TAB(*) 15 MG PO SCH (07:52)
[2018-01-12] MEDS: Venlafaxine EXT RELEASE CAP* 37.5 MG PO SCH (07:52)
[2018-01-12 08:11] VITALS: BP 107/71
--- NOTE | 2018-01-12 08:52 | RAD ---
INDICATION: Monitor for DVT progression. COMPARISON: January 08, 2018 TECHNIQUE: Pérez scale, color Doppler, and spectral analysis of the deep veins of the BILATERAL lower extremities. Vessel compression, phasicity, and augmentation assessed. REPORT: The RIGHT common femoral, great saphenous, profunda femoral, and proximal segment of the femoral vein are patent. Unchanged finding of occlusive DVT at the RIGHT mid femoral vein through the popliteal vein and paired posterior tibial and peroneal calf veins. The LEFT common femoral, great saphenous, profunda femoral, femoral, popliteal, peroneal, and posterior tibial veins are patent. IMPRESSION: #. Unchanged finding of occlusive DVT at the RIGHT mid femoral vein through the popliteal vein and paired posterior tibial and peroneal calf veins. #. Negative for LEFT lower extremity DVT.
--- NOTE | 2018-01-13 19:21 | DS ---
CC: Dr. Laura Laurent * DISCHARGE SUMMARY: DATE OF ADMISSION: 01/08/18 DATE OF DISCHARGE: 01/12/18 PRIMARY CARE PROVIDER: Dr. Laura Laurent. MY ATTENDING WHILE IN THE HOSPITAL: Dr. Dyan Graham.* (DICTATED BY MARY PETERS) PRIMARY DISCHARGE DIAGNOSES: 1. Submassive pulmonary embolism. 2. Deep vein thrombosis. SECONDARY DISCHARGE DIAGNOSIS: Asthma. STUDIES DONE WHILE IN THE HOSPITAL: Chest x-ray from 01/08/18 read as mild obstructive lung disease, no pulmonary or cardiac process evident. Electrocardiogram from 01/08/18 read as normal sinus rhythm. Right axis deviation. T-wave flattening in V3 and V4. No other borderline ST elevation AVR. No other significant abnormalities. Right axis deviation new since most recent repeat record in 2005. Thorax CTA from 01/08/18 read as large saddle embolus on both main pulmonary arteries, other scattered filling defects noted in the left upper lobe and right middle lobe pulmonary arteries. Transthoracic echocardiogram from 01/08/18 read as global left ventricular wall motion contractility within normal limits. Normal left ventricular systolic function. Estimated ejection fraction 55% to 60%. Right ventricle is slightly dilated. Right ventricular global systolic function is mild to moderately reduced. Flattened during systole consistent with left ventricular pressure overload. There is no evidence of aortic stenosis, no evidence of mitral regurgitation. Trace tricuspid regurgitation. Unable to estimate the right ventricular systolic pressure. Pericardium appears normal. Venous Doppler study from 01/08 read as gross occlusive thrombus of the right femoral vein at the mid and distal segments as well as popliteal and nonocclusive thrombosis at the paired posterior tibial and peroneal calf veins. Negative for left lower DVT. Repeat transthoracic echocardiogram from 01/10/18 read as Left ventricular wall motion contractility within normal limits. Estimated ejection fraction 55% to 60%. Septal flattening of the ventricular septum consistent with right ventricular pressure overload. The right ventricle wall thickness is mildly increased. The ventricle global systolic function is mildly reduced. The apical free wall and basal free wall are best preserved. There is trace tricuspid regurgitation, unable to estimate left ventricular systolic pressure. Mild interval improvement in the right ventricular function compared to 01/08/18. Repeat venous Doppler study from 01/12/18 read as unchanged from prior exam with occlusion DVT at the right mid femoral vein to the popliteal vein and paired posterior tibial and peroneal calf veins. Negative for left lower extremity DVT. MEDICATIONS AT DISCHARGE: 1. Venlafaxine 12.5 mg p.o. daily. 2. [place]-3 fatty acid 1000 mg p.o. b.i.d. 3. Xarelto 15 mg p.o. b.i.d. x39. 4. Tylenol 350 mg q.6 hours as needed. 5. Xarelto 20 mg p.o. daily, start after 15 mg dose is complete. HOSPITAL COURSE: This is a brief summary of the patient's presentation. For more details, please see the history and physical from Dr. Stevo Ghotra on . In brief, the patient is a 62-year-old female with past medical history significant only for asthma who had no recent surgeries, no history of malignancy, no history of prior blood clots in age-appropriate cancer screening , no recent immobilization, who presented with shortness of breath that had been present since the morning before her presentation as well as dizziness and lightheadedness. The patient reports that her dyspnea is worse with exertion and she has significantly decreased exercise tolerance. The patient had a CT as above showing large saddle embolism. The patient was started on a heparin drip. The patient had EKG changes as above. The patient's blood pressure was initially normal, but dropped. The patient went to a low 73/26 on 01/09/18 and had several other hypotensive readings throughout her hospitalization. The patient was initially tachycardic. Her heart rate decreased from 100s down to the 70s on the day of her discharge. The patient was able to be weaned off oxygen on 01/09/18 and has good oxygenation through the last several days of her discharge. The patient had initially slightly elevated white blood cell count, which trended down. The patient had an elevated D-dimer on admission and a slightly elevated lactic acid as well as elevated troponin at 0.22, and elevated BNP at 242. The patient had hypercoagulable workup drawn, which is pending except for factor V Leiden, which is negative; and anticardiolipin antibody, which is negative. The patient had no other significant abnormalities in her chemistry profile. The patient was able to be transitioned subsequently to Xarelto with continued improvement in her symptoms. The patient had a repeat echocardiogram, which showed improvement in her right ventricle; and a lower extremity Doppler, which showed a stable blood clot without change. The patient is stable enough for discharge on 01/12/18. PHYSICAL EXAM ON DAY OF DISCHARGE: General: The patient is a 62-year-old female who appears her stated age and sitting comfortably in bed, in no acute distress. Vital Signs: At the time of discharge, temperature 98.4, pulse rate 79, respiratory rate 16, oxygen saturation 99% on room air, and blood pressure 107/71. HEENT: Head: Normocephalic and atraumatic. Sclerae anicteric. No conjunctival injection. Nasal mucosa moist. Oral mucosa moist. No oropharyngeal erythema, discharge, or exudate. Neck: Supple and nontender. No lymphadenopathy. No carotid bruits auscultated. No JVD. Cardiac: Regular rate and rhythm. No clicks, murmurs, gallops, or rubs. Pulses 2+ in the bilateral dorsalis pedis, posterior tibialis, and radial areas. Right leg shows 1+ pitting edema, changed from previous exam. Respiratory: Clear to auscultation bilaterally. No wheezes, rales, or rhonchi. Good air exchange bilaterally. Abdomen: Soft, nontender. Bowel sounds present, normoactive in all 4 quadrants. No hepatosplenomegaly. No abdominal bruits auscultated. No hepatojugular reflux. Genitourinary: No suprapubic or CVA tenderness. Skin: Clean, dry, and intact. No rashes. Neuro: Cranial nerves II through XII intact. No focal deficits. Alert and oriented x3. Psychiatric: Pleasant and cooperative. DISCHARGE PLAN: The patient will be discharged to home on Xarelto. The patient will be given a work excuse. The patient should be out of work for the next week and then return on limited duty. The patient should follow up with the primary care provider only for general medical management and to discuss the ongoing care of her pulmonary emboli as well as to ensure her continued improvement. The patient can be held out of work for longer if necessary. The patient should return to the hospital for alarming symptoms such as increased shortness of breath, chest pain, passing out, or decreased exercise tolerance. Consideration for hypercoagulable workup should be given due to the size and severity of her initial episode of clots. The patient's hypercoagulable workup drawn while in the hospital was while she was on heparin and had a blood clot making many of the components of it unreliable. Consideration for hematology/ oncology consultation as an outpatient should be made if deemed necessary. The patient should have a regular unrestricted diet and engage in activity as tolerated, avoiding overly strenuous activities. TIME SPENT: Approximately 60 minutes was spent on the discharge of this patient , 30 of which was spent [id number] with the patient obtaining history and physical and discussing treatment plan. MARY PETERS [id number]/[facility] #: [id number] PEPE
[2018-01-22 11:27] LABS: Prothrombin 20210 Mutation C
== END 2018-01-12 14:19 | disposition home or self-care (01) | DRG 134 ==
LOC: ED 06:48 → ICU 09:45 → MEDTELE 01-10 12:02
PROVIDERS: ADMIT Internal Medicine; ATTEND Internal Medicine
DX: I26.02 Saddle embolus of pulmonary artery with acute cor pulmonale (principal); I82.431 Acute embolism and thrombosis of right popliteal vein; I82.411 Acute embolism and thrombosis of right femoral vein; I82.441 Acute embolism and thrombosis of right tibial vein; I82.4Z1 Acute embolism and thrombosis of unspecified deep veins of right distal lower extremity; R09.02 Hypoxemia; I07.1 Rheumatic tricuspid insufficiency; Z98.51 Tubal ligation status; Z79.01 Long term (current) use of anticoagulants; J45.909 Unspecified asthma, uncomplicated; I95.9 Hypotension, unspecified; Z82.49 Family history of ischemic heart disease and other diseases of the circulatory system
CPT/HCPCS: 36415; 71046; 71275; 80048; 80053; 81003; 81015; 81240; 81241; 82550; 82553; 83605; 83735; 83880; 84484; 85025; 85379; 85610; 85730; 86140; 86147; 87641; 93005; 93306; 93308; 93970; 99285; A9270-GY; C8929; G8978-GP-CJ; G8978-GP-CK; G8979-GP-CH; J1644; Q9967

== ENCOUNTER 2018-01-29 11:25 | Emergency (ER) | payer BC ==
[2018-01-29 11:57] LABS: ABS Basophils 0 10^3/ul (0-0.2); ABS Eosinophils 0.1 10^3/ul (0-0.6); ABS Lymphocytes 1.6 10^3/ul (1.0-4.8); ABS Monocytes 0.3 10^3/ul (0-0.8); ABS Neutrophils 3.3 10^3/ul (1.5-7.7); ABS Nucleated RBC 0 10^3/ul; Eosinophil % 2.4 % (0-6); Hematocrit 42 % (35-47); Hemoglobin 14.4 g/dl (12.0-16.0); Lymphocyte % 29.9 % (25-47); Mean Corpuscular HGB Conc 34 g/dl (31-36); Mean Corpuscular Hemoglobin 32 pg (27-31); Mean Corpuscular Volume 94 fL (80-97); Mean Platelet Volume 7.7 um3 (7.4-10.4); Nucleated Red Blood Cells % 0.3; Platelet Count 202 10^3/ul (150-450); Red Blood Count 4.52 10^6/ul (4.00-5.40); Red Cell Distribution Width 13 % (10.5-15); White Blood Count 5.3 10^3/ul (3.5-10.8)
[2018-01-29] MEDS ORDERED: Meclizine TAB* 12.5 MG PO ONE (11:57)
[2018-01-29] MEDS ORDERED: NS 0.9% 1000 ML* 1,000 ML IV ONE (11:57)
[2018-01-29] MEDS ORDERED: diPHENhydraMINE IV* 50 MG/ML 1 ml VIAL (BENADRYL) IV ONE (11:57)
--- NOTE | 2018-01-29 12:13 | RAD ---
HISTORY: vertigo, recent PE on Xarelto COMPARISONS: None TECHNIQUE: Multiple contiguous axial CT scans were obtained of the head without intravenous contrast. FINDINGS: HEMORRHAGE/INFARCT: There is no hemorrhage or acute infarct. MASSES/SHIFT: There is no mass or shift. EXTRA-AXIAL SPACES: There are no extra-axial fluid collections. SULCI AND VENTRICLES: The sulci and ventricles are normal in size and position for the patient's stated age. CEREBRUM: There are no focal parenchymal abnormalities. BRAINSTEM: There are no focal parenchymal abnormalities. CEREBELLUM: There are no focal parenchymal abnormalities. VESSELS: The vessels are grossly normal. PARANASAL SINUSES: The paranasal sinuses are clear. ORBITS: The orbits are unremarkable. BONES AND SOFT TISSUE: No bone or soft tissue abnormalities are noted. OTHER: None IMPRESSION: NO ACUTE INTRACRANIAL PATHOLOGY.
--- OUTSIDE RECORDS SUMMARY | 2018-01-29 12:13 | XMS REPORT | Continuity of Care Document ---
:1955 External Reference #:[id number] Author Name Laine Taylor O.D. Address [address] [place] [address] Care Team Providers Name Role Phone Laura Laurent M.D. Primary Care Physician Unavailable Payers Type Date Identification Numbers Payment Provider Subscriber Policy Number: [id number] [facility] Arline Simmons PayID: [id number] [address] [address] [place] [address] Advance Directives Description No Information Available Problems Date Description Provider Status Onset: H/O: depression Active Onset: Asthma Active Onset: 08/10/2015 Nonexudative age-related macular Laine Taylor O.D. 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 Use Occasionally consumes alcohol Tobacco Use Start: Unknown Patient has never smoked Recreational Drug Use Never Used Drugs Smoking Status Reviewed: 01/24/18 Patient has never smoked Allergies, Adverse Reactions, Alerts Description No Known Drug Allergies Medications Medication Date Status Form Strength Qnty SIG Indications Ordering Provider Ventolin HFA Active Aerosol 108(90Base) as Unknown 000 mcg/Act needed Ocuvite Adult Active Capsules every Unknown 50+ 000 day Flovent HFA Active Aerosol 110mcg/Act as Unknown 000 needed Effexor XR Active Caps ER 17.5mg Unknown 000 24HR Fish Oil + D3 Active Capsules 1000-1000mg Unknown 000 -Unit Xarelto Active Tablets 20mg Unknown 000 Venlafaxine 0 Hx Tablets 37.5mg Unknown HCL 000 - 017 Immunizations Description No Information Available Vital Signs Description No Information Available Results Description No Information Available Procedures Date Code Description Status 01/10/2018 69152 Rescheduled Appointment Completed 03/10/2017 57291 Scanning Computerized Opthalmic Diagnostic Posterior Seg Completed Retina 03/10/2017 71295 Est Patient Intermediate Exam Completed 09/07/2016 41846 Determination Of Refractive State Completed 09/07/2016 85101 Est Patient Comprehensive Exam Completed 03/09/2016 66525 Scanning Computerized Opthalmic Diagnostic Posterior Seg Completed Retina 03/09/2016 38446 Est Patient Comprehensive Exam Completed 08/10/2015 82312 Scanning Computerized Opthalmic Diagnostic Posterior Seg Completed Retina 08/10/2015 17603 Determination Of Refractive State Completed 08/10/2015 23668 New Patient Comprehensive Exam Completed 06/23/2009 84589 Fluorescein Angiography Completed 06/12/2009 73551 Scanning Laser W/Interp And Report Completed 06/12/2009 70749 New Patient Comprehensive Exam Completed Encounters Description No Information Available Plan of Treatment 01/24/2018 - Laine Taylor O.D.H35.3132 Nonexudative age-related macular degeneration, bilateral, intermediate dry stageComments:Smoking can increase the risk of developing or worsening any eye related disease, as well as affect your overall health. If you are a smoker, we strongly recommend that you quit.If you are not a smoker, we strongly recommend that you do not start. CONTINUE TAKING AREDS 2 VITAMIN FORMULACONTINUE TOCHECK YOUR AMSLER GRID 1-2 X WEEKFollow up:6 Month Follow Up You can expect to have your eyes dilated at your next visit. If Dr. Taylor orders any additional testing, it may require extra time. We recommend that you bring sunglasses, as dilation drops often make you light sensitive until they wear off. We always recommend you bring someone to drive you home if you are uncomfortable driving with your eyes dilated. If you have any questions before your next visit, feel free to call our office at .J31.214 Combined forms of age-related cataract, bilateralComments:You have been diagnosed with cataracts. If you are happy with your vision as it is now, then we willsee you at your next scheduled appointment. If you feel like your vision is getting worse before your scheduled appointment, please call Kamilla Flores at [phone].
[2018-01-29 12:16] LABS: EGFR Non-African American 61.5 (>60)
[2018-01-29 13:46] VITALS: BP 130/91
--- NOTE | 2018-01-29 14:20 | ED ---
Dizziness - HPI Summary HPI Summary: A 62 y/o female presents to [facility] c/o dizziness since last night at 21:00. She feels shaky, dizzy and nauseous especially when coughing or lying down. She has been coughing more today. She called her PCP and was told to come to the ED. She had a PE in the past and states that she feels more nauseous but less SOB. She has an edema in her right leg due to a DVT and was put on Xarelto. She denies any leg pain. She is currently taking Xarelto, tramadol, venlafaxine and zyrtec. She denies palpitations, CP, numbness or weakness, difficulty with speech or vision and syncope. She states that she did not sleep well last night and has not regained her strength since the PE. - History Of Current Complaint Chief Complaint: EDDizziness Stated Complaint: DIZZINESS Time Seen by Provider: 01/29/18 11:33 Hx Obtained From: Patient Onset/Duration: Still Present Timing: Constant Severity Initially: Moderate Severity Currently: Moderate Character: Unable To Describe Aggravating Factor(s): Position Change Associated Signs And Symptoms: Positive: Nausea, Vomiting - Allergies/Home Medications Allergies/Adverse Reactions: Allergies Allergy/AdvReac Type Severity Reaction Status Date / Time No Known Allergies Allergy Verified 01/08/18 07:13 Home Medications: Home Medications Venlafaxine EXT RELEASE CAP* [Effexor Xr CAP*] 37.5 mg PO DAILY 01/29/18 [ History Confirmed 01/29/18] PMH/Surg Hx/FS Hx/Imm Hx Endocrine/Hematology History: Denies: Hx Diabetes Cardiovascular History: Denies: Hx Hypertension Respiratory History: Reports: Hx Asthma Musculoskeletal History: Reports: Hx Arthritis Sensory History: Reports: Hx Contacts or Glasses Denies: Hx Hearing Aid Opthamlomology History: Reports: Hx Contacts or Glasses Psychiatric History: Reports: Hx Anxiety - Surgical History Surgery Procedure, Year, and Place: tubal ligation. sinus surgery Infectious Disease History: No Infectious Disease History: Denies: Hx Clostridium Difficile, Hx Hepatitis, Hx Human Immunodeficiency Virus (HIV), Hx of Known/Suspected MRSA, Hx Shingles, Hx Tuberculosis, Traveled Outside the [place] in Last 30 Days - Family History Known Family History: Positive: Cardiac Disease, Hypertension - Social History Alcohol Use: Weekly Alcohol Amount: 4 drinks/day Substance Use Type: Reports: None Smoking Status (MU): Never Smoked Tobacco Review of Systems Negative: Fever Negative: Palpitations, Chest Pain Positive: Shortness Of Breath Positive: Nausea Neurological: Other - Positive: dizziness, Negative: difficulty with speech or vision Negative: Weakness, Numbness, Syncope All Other Systems Reviewed And Are Negative: Yes Physical Exam - Summary Physical Exam Summary: Appearance: Well appearing, no pain distress Skin: warm, dry, reflects adequate perfusion Head/face: normal Eyes: EOMI, CASI, no nystagmus ENT: mucous membranes moist Neck: supple, non-tender Respiratory: CTA, breath sounds present Cardiovascular: RRR, pulses symmetrical Abdomen: non-tender, soft Bowel Sounds: present Musculoskeletal: normal, strength/ROM intact Neuro: positive eriberto-hallpike to the left, no focal deficits or weakness, sensory motor intact, A&Ox3 GCS: 15 Triage Information Reviewed: Yes Vital Signs On Initial Exam: Initial Vitals Temp Pulse Resp BP Pulse Ox 98.1 F 105 20 155/103 97 01/29/18 11:26 01/29/18 11:26 01/29/18 11:26 01/29/18 11:26 01/29/18 11:26 Vital Signs Reviewed: Yes Diagnostics - Vital Signs Vital Signs Temp Pulse Resp BP Pulse Ox 01/29/18 13:15 86 17 130/91 98 01/29/18 13:08 85 20 158/84 96 01/29/18 13:00 95 17 98 01/29/18 12:45 95 36 145/99 98 01/29/18 12:16 95 17 153/90 97 01/29/18 12:00 90 18 97 01/29/18 11:45 112 147/98 98 01/29/18 11:26 98.1 F 105 20 155/103 97 - Laboratory Lab Results: Lab Results 01/29/18 01/29/18 Range/Units 11:51 11:51 WBC 5.3 (3.5-10.8) 10^3/ul RBC 4.52 (4.00-5.40) 10^6/ul Hgb 14.4 (12.0-16.0) g/dl Hct 42 (35-47) % MCV 94 (80-97) fL MCH 32 H (27-31) pg MCHC 34 (31-36) g/dl RDW 13 (10.5-15) % Plt Count 202 (150-450) 10^3/ul MPV 7.7 (7.4-10.4) um3 Neut % (Auto) 61.1 (38-83) % Lymph % (Auto) 29.9 (25-47) % Jasper % (Auto) 5.9 (0-7) % Eos % (Auto) 2.4 (0-6) % Baso % (Auto) 0.7 (0-2) % Absolute Neuts (auto) 3.3 (1.5-7.7) 10^3/ul Absolute Lymphs (auto) 1.6 (1.0-4.8) 10^3/ul Absolute Monos (auto) 0.3 (0-0.8) 10^3/ul Absolute Eos (auto) 0.1 (0-0.6) 10^3/ul Absolute Basos (auto) 0 (0-0.2) 10^3/ul Absolute Nucleated RBC 0 10^3/ul Nucleated RBC % 0.3 Sodium 141 (135-145) mmol/L Potassium 3.5 (3.5-5.0) mmol/L Chloride 104 (101-111) mmol/L Carbon Dioxide 30 (22-32) mmol/L Anion Gap 7 (2-11) mmol/L BUN 11 (6-24) mg/dL Creatinine 0.92 (0.51-0.95) mg/dL Est GFR ( Amer) 74.4 (>60) Est GFR (Non-Af Amer) 61.5 (>60) BUN/Creatinine Ratio 12.0 (8-20) Glucose 96 (70-100) mg/dL Calcium 9.2 (8.6-10.3) mg/dL Troponin I 0.00 (<0.04) ng/mL Result Diagrams: 01/29/18 11:51 01/29/18 11:51 Lab Statement: Any lab studies that have been ordered have been reviewed, and results considered in the medical decision making process. - CT Brain CT CT Interpretation: No Acute Changes CT Interpretation Completed By: Radiologist - No acute intracranial pathology. This report has been reviewed by the ED physician. 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 Non-Paretic Hand: Both Correctly Best Gaze (Only Horizontal Eye Movement): Normal Visual Field Testing: No Visual Loss Facial Paresis-Pt to Smile & Close Eyes or Grimace Symmetry: Normal/Symmetrical Motor Function - Right Arm: No Drift-Holds 10 Seconds Motor Function - Left Arm: No Drift-Holds 10 Seconds Motor Function - Right Leg: No Drift-Holds 10 Seconds Motor Function - Left Leg: No Drift-Holds 10 Seconds Limb Ataxia-Must be out of Proportion to Weakness Present: Absent Sensory (Use Pinprick to Test Arms/Legs/Trunk/Face): Normal Best Language (Describe Picture, Name Items): No Aphasia Dysarthria (Read Several Words): Normal Extinction and Inattention: No Abnormality Total Score: 0 Re-Evaluation - Re-Evaluation First Eval Re-Evaluation Time: 13:15 Change: Improved Comment: Patient feels better and wants to be discharged Dizzy Course/Dx - Course Course Of Treatment: Patient with recent pulmonary embolism and DVT ons or alto and developed abrupt onset of rotational dizziness associated with movement. Her Hallpike test is positive to the left side. I performed Sagrario maneuvers on her here. She had improvement with IV fluids, Benadryl and oral meclizine. Head CT was performed given the oral anticoagulant associated with her PE. Was negative. She was discharged in good condition and able to move about without symptoms following treatment. Follow-up mostly with primary care physician. - Diagnoses Differential Diagnosis/HQI/PQRI: Benign Paroxysmal Positional Vertigo, Hypovolemia, Labyrinthitis, Medication Reaction, Metabolic Abnormality, Vasovagal Reaction, Other - Brainstem infarct Provider Diagnoses: Peripheral vertigo Discharge - Sign-Out/Discharge Documenting (check all that apply): Patient Departure - DC - Discharge Plan Condition: Improved Disposition: HOME Prescriptions: Meclizine HCl [Dramamine Less Drowsy] 25 mg PO TID #30 tablet Patient Education Materials: Vertigo (ED) Referrals: Laura Laurent MD [Primary Care Provider] - Additional Instructions: Call today to schedule prompt follow-up with her primary care physician. Stay well-hydrated. Do not drive or use ladders or otherwise bigger self in a dangerous position if you gets dizzy. Return with severe headaches, repetitive vomiting, chest pain/shortness of breath, worse, new symptoms or other concerns as discussed. Eply maneuvers as needed. - Billing Disposition and Condition Condition: IMPROVED Disposition: Home - Attestation Statements Document Initiated by Scribe: Yes Documenting Scribe: Efrain Navas Provider For Whom Scribe is Documenting (Include Credential): Josiah Ferrera MD Scribe Attestation: I, Efrain Navas, scribed for Josiah Ferrera MD on 01/29/18 at 1520. Scribe Documentation Reviewed: Yes Provider Attestation: The documentation as recorded by the Efrain adler accurately reflects the service I personally performed and the decisions made by me, Josiah Ferrera MD
== END 2018-01-29 15:05 | disposition home or self-care (01) ==
LOC: ED 11:25
DX: H81.399 Other peripheral vertigo, unspecified ear (principal); Z79.01 Long term (current) use of anticoagulants
CPT/HCPCS: 36415; 70450; 80048; 84484; 85025; 93005; 96374; 99283; A9270-GY; J1200

== ENCOUNTER 2018-10-10 11:58 | Day surgery (SDC) | payer BC, MEDICARE ==
[~2018-10-10 11:58] MED LIST: Acetaminophen TAB* 325 MG PO PRN; Buffered Lidocaine 1% SYRIN* 1 ML/SYRINGE INTRADERM ONE; Cyclopentolate 1% OPTH.SOL* 2 ML BTL ONE; Ketorolac 0.5% OPHTH (NF) 0.5 % 5 ML BTL ONE; Lidocaine 2% EPI 1:200000 MPF*10-20 ML VIAL ONE; Neomycin/Polymy/Dex OPTH.SUSP* MAXITROL 0.1% 5 ML ONE; Phenylephrine OPHTH SOL 2.5%* 2 ML ONE; Povidone Iodine 5% OPTH* 30 ML BTL ONE; Proparacaine 0.5% OPHTH.SOL* 15 ML BTL ONE; acetaZOLAMIDE TAB* 250 MG ONE
[2018-10-10] MEDS ORDERED: Midazolam* 1 MG/ML 2 ML VIAL (2 MG) ONE ×2 (14:54→14:58)
[2018-10-10 15:31] VITALS: BP 118/72
--- NOTE | 2018-10-10 15:43 | OP ---
AMENDED REPORT NOW INCLUDES DATE OF OPERATION - ESIGNED BEFORE ADJUSTMENT * DATE OF OPERATION: 10/10/18 - OR EAST DATE OF : 51 SURGEON: Lee Haq M.D. PREOPERATIVE DIAGNOSIS: Cataract, right eye. POSTOPERATIVE DIAGNOSIS: Cataract, right eye. OPERATIVE PROCEDURE: Extracapsular cataract extraction with intraocular lens implant, right eye. DESCRIPTION OF PROCEDURE: The patient was brought to the operating room after being given 1/2% Alcaine with epinephrine drops in the preoperative area. The eye was prepped and draped in the usual sterile fashion. Sterile drape and eyelid speculum were placed. Again, topical 1/2% Alcaine with epinephrine was given. A paracentesis incision was made at the 9 o'clock position with the No.75 blade. Clear cornea incision 2.2 x 2.2-mm was created at the 12 o'clock position starting at the anterior limbus using the 2.2-mm keratome. The anterior chamber was irrigated with 0.4 mL of 1% non-preservative intracameral lidocaine and filled with DisCoVisc. A capsulorrhexis was completed using the cystotome and the Utrata forceps. Hydrodissection was performed with balanced salt solution. The lens nucleus was removed with the Phacoemulsification handpiece without incident. Cortex was removed with the irrigation-aspiration handpiece. The capsular bag was re-inflated using DisCoVisc and an SN60WF 20.5 implant was inserted with the shooter. The irrigation-aspiration handpiece was used to remove all residual DisCoVisc. The eye was refilled with balanced salt solution and the wound checked and found to be watertight. Topical Maxitrol drops were given. [id number]/[facility] #: [id number] [facility] HEALTHShanique
== END 2018-10-10 15:25 | disposition home or self-care (01) ==
LOC: OREAST 11:58
PROVIDERS: ATTEND Specialist
DX: H25.811 Combined forms of age-related cataract, right eye (principal); H35.3132 Nonexudative age-related macular degeneration, bilateral, intermediate dry stage; J45.909 Unspecified asthma, uncomplicated; Z86.711 Personal history of pulmonary embolism; Z79.01 Long term (current) use of anticoagulants; F41.8 Other specified anxiety disorders
CPT/HCPCS: A9270-GY; J2250; V2632

== ENCOUNTER 2018-10-17 06:52 | Day surgery (SDC) | payer BC, MEDICARE ==
[~2018-10-17 06:52] MED LIST changes: -Cyclopentolate 1% OPTH.SOL* 2 ML BTL ONE; -Ketorolac 0.5% OPHTH (NF) 0.5 % 5 ML BTL ONE; -Lidocaine 2% EPI 1:200000 MPF*10-20 ML VIAL ONE; -Neomycin/Polymy/Dex OPTH.SUSP* MAXITROL 0.1% 5 ML ONE; -Phenylephrine OPHTH SOL 2.5%* 2 ML ONE; -Povidone Iodine 5% OPTH* 30 ML BTL ONE; -Proparacaine 0.5% OPHTH.SOL* 15 ML BTL ONE; -acetaZOLAMIDE TAB* 250 MG ONE
[2018-10-17] MEDS ORDERED: Midazolam* 1 MG/ML 2 ML VIAL (2 MG) ONE ×2 (07:39→08:03)
--- NOTE | 2018-10-17 08:49 | OP ---
OPERATIVE NOTE: DATE OF OPERATION: 10/17/18 DATE OF : 51 SURGEON: Lee Haq MD. PREOPERATIVE DIAGNOSIS: Cataract, left eye. POSTOPERATIVE DIAGNOSIS: Cataract, left eye. OPERATIVE PROCEDURE: Extracapsular cataract extraction with intraocular lens implant, left eye. PROCEDURE: The patient was brought to the operating room after being given 1/2% Alcaine with epineph rine drops in the preoperative area. The eye was prepped and draped in the usual sterile fashion. S terile drape and eyelid speculum were placed. Again, topical 1/2% Alcaine with epinephrine was given . A paracentesis incision was made at the 3 o'clock position with the No.75 blade. Clear cornea inc ision 2.2 x 2.2 mm was created at the 6 o'clock position starting at the anterior limbus using the 2. 2 mm keratome. The anterior chamber was irrigated with 0.4 mL of 1% non-preservative intracameral li docaine and filled with DisCoVisc. A capsulorrhexis was completed using the cystotome and the Utrata forceps. Hydrodissection was performed with balanced salt solution. The lens nucleus was removed wi th the Phacoemulsification handpiece without incident. Cortex was removed with the irrigation-aspira tion handpiece. The capsular bag was re-inflated using DisCoVisc and an [id number] 19 implant was insert ed with the shooter. The irrigation-aspiration handpiece was used to remove all residual DisCoVisc. The eye was refilled with balanced salt solution and the wound checked and found to be watertight. Topical Maxitrol drops were given. [id number]/[facility] #: [id number]
[2018-10-17 08:57] VITALS: BP 108/76
[2018-10-17] MEDS ORDERED: acetaZOLAMIDE TAB* 250 MG ONE (11:20)
[2018-10-17] MEDS ORDERED: Neomycin/Polymy/Dex OPTH.SUSP* MAXITROL 0.1% 5 ML ONE (11:20)
[2018-10-17] MEDS ORDERED: Proparacaine 0.5% OPHTH.SOL* 15 ML BTL ONE (11:20)
[2018-10-17] MEDS ORDERED: Ketorolac 0.5% OPHTH (NF) 0.5 % 5 ML BTL ONE (11:20)
[2018-10-17] MEDS ORDERED: Phenylephrine OPHTH SOL 2.5%* 2 ML ONE (11:20)
[2018-10-17] MEDS ORDERED: Cyclopentolate 1% OPTH.SOL* 2 ML BTL ONE (11:20)
[2018-10-17] MEDS ORDERED: Povidone Iodine 5% OPTH* 30 ML BTL ONE (11:20)
[2018-10-17] MEDS ORDERED: Lidocaine 2% EPI 1:200000 MPF*10-20 ML VIAL ONE (11:20)
[2018-10-17] MEDS ORDERED: Lidocaine 1%** 5 ML VIAL ONE (11:20)
== END 2018-10-17 08:40 | disposition home or self-care (01) ==
LOC: OREAST 06:52
PROVIDERS: ATTEND Specialist
DX: H25.812 Combined forms of age-related cataract, left eye (principal); H35.3132 Nonexudative age-related macular degeneration, bilateral, intermediate dry stage; J45.909 Unspecified asthma, uncomplicated; F41.8 Other specified anxiety disorders; Z79.01 Long term (current) use of anticoagulants
CPT/HCPCS: A9270-GY; J2250; V2632

== ENCOUNTER 2018-11-25 17:29 | Emergency (ER) | payer BC, MEDICARE ==
[2018-11-25 18:02] LABS: INR 1.06 (0.82-1.09)
[2018-11-25 18:09] LABS: ABS Eosinophils 0.1 10^3/ul (0-0.6); ABS Lymphocytes 2.5 10^3/ul (1.0-4.8); ABS Monocytes 0.4 10^3/ul (0-0.8); ABS Neutrophils 5.8 10^3/ul (1.5-7.7); Hematocrit 45 % (35-47); Hemoglobin 15.4 g/dL (12.0-16.0); Lymphocyte % 28.2 %; Mean Corpuscular HGB Conc 34 g/dL (31-36); Mean Corpuscular Hemoglobin 32 pg (27-31); Mean Corpuscular Volume 94 fL (80-97); Mean Platelet Volume 8.1 fL (7.4-10.4); Platelet Count 249 10^3/uL (150-450); Red Blood Count 4.83 10^6 /uL (3.70-4.87); Red Cell Distribution Width 14 % (10-15); White Blood Count 8.8 10^3/uL (3.5-10.8)
[2018-11-25 18:15] LABS: Albumin 4.4 g/dL (3.2-5.2); Albumin/Globulin Ratio 1.4 (1-3); BUN/Creatinine Ratio 12.8 (8-20); Calcium 9.9 mg/dL (8.6-10.3); EGFR African American 80.1 (>60); EGFR Non-African American 66.2 (>60); Globulin 3.1 g/dL (2-4); Potassium 4.6 mmol/L (3.5-5.0); Total Bilirubin 0.4 mg/dL (0.2-1.0); Total Protein 7.5 g/dL (6.4-8.9)
--- OUTSIDE RECORDS SUMMARY | 2018-11-25 18:18 | XMS REPORT | Continuity of Care Document ---
:1955 External Reference #:[id number] Author Name Laine Taylor O.D. Address [address] [place] [address] Care Team Providers Name Role Phone Laura Laurent M.D. Primary Care Physician Unavailable Payers Date Identification Numbers Payment Provider Subscriber Policy Number: [id number] [facility] Arline Simmons PayID: [id number] [address] [address] [place] [address] Policy Number: [id number] Medicare - NGS Arline Simmons PayID: [id number] [address] [place] [address] Problems Active Problems Provider Date H/O: depression Onset: Asthma Onset: Nonexudative age-related macular Laine Taylor O.D. Onset: 08/10/2015 degeneration Combined form of senile cataract Laine Taylor O.D. 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 Onset: 11/09/2018 Presence of intraocular lens Lee Haq M.D. 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 10/17/2018 1.4% Solution Ventolin HFA as needed Unknown 108(90Base) mcg/Act Aerosol Ocuvite Adult 50+ every day Unknown Capsules Flovent HFA as needed Unknown 110mcg/Act Aerosol Effexor XR Unknown 17.5mg Caps ER 24HR Fish Oil + D3 Unknown [id number] Capsules Xarelto Unknown 20mg Tablets Tramadol HCL Unknown 50mg Tablets History Medications Ciprofloxacin HCL 1 drop left eye 10ml Lee Haq, 10/08/2018 - 0.3% three times day M.D. 11/02/2018 Solution Ketorolac Tromethamine 1 drop right eye 10ml Lee Haq, 10/08/2018 - 0.5% twice a day left M.D. 11/02/2018 Solution eye three times a day Prednisolone Acetate 1 drop right eye 10ml Lee Haq, 10/08/2018 - 1% twice a day left M.D. 11/02/2018 Suspension eye three times a day Venlafaxine HCL Unknown - 37.5mg 03/09/2017 Tablets Procedures Date Code Description Status 10/17/2018 69337 Extracapsular Cataract Extraction W/Intraocular Lens Completed 10/10/2018 99029 Extracapsular Cataract Extraction W/Intraocular Lens Completed 10/08/2018 77527 Ophthalmic Biometry Completed 10/08/2018 54827 Ophthalmic Biometry Completed 10/08/2018 36626 Est Patient Intermediate Exam Completed 09/28/2018 55766 Est Patient Comprehensive Exam Completed 09/19/2018 31891 Scanning Computerized Opthalmic Diagnostic Posterior Seg Completed Retina 09/19/2018 01536 Est Patient Comprehensive Exam Completed 08/22/2018 58698 Patient No Show For Appt Completed 01/24/2018 18606 Scanning Computerized Opthalmic Diagnostic Posterior Seg Completed Retina 01/24/2018 84449 Determination Of Refractive State Completed 01/24/2018 75018 Est Patient Comprehensive Exam Completed 01/10/2018 83370 Rescheduled Appointment Completed 03/10/2017 12792 Scanning Computerized Opthalmic Diagnostic Posterior Seg Completed Retina 03/10/2017 16309 Est Patient Intermediate Exam Completed 09/07/2016 45459 Determination Of Refractive State Completed 09/07/2016 67192 Est Patient Comprehensive Exam Completed 03/09/2016 11869 Scanning Computerized Opthalmic Diagnostic Posterior Seg Completed Retina 03/09/2016 69082 Est Patient Comprehensive Exam Completed 08/10/2015 08849 Scanning Computerized Opthalmic Diagnostic Posterior Seg Completed Retina 08/10/2015 36734 Determination Of Refractive State Completed 08/10/2015 17280 New Patient Comprehensive Exam Completed 06/23/2009 82695 Fluorescein Angiography Completed 06/12/2009 52796 Scanning Laser W/Interp And Report Completed 06/12/2009 90022 New Patient Comprehensive Exam Completed Plan of Treatment 11/09/2018 - Laine Taylor O.D.Z96.1 Presence of intraocular lensComments: Continue to use artificial tears every two hours both eyesUse refresh pm ointment at bedtime both eyes or systane nighttimeRestart prednisolone drops right eye only 3xday for 5 days, then 2xday for 5 days then 1xday for 5 days, then stopFollow up:7-10 day [id number] Nonexudative age-related macular degeneration, bilateral, inH04.123 Dry eye syndrome of bilateral lacrimal glands
--- OUTSIDE RECORDS SUMMARY | 2018-11-25 18:18 | XMS REPORT | Continuity of Care Document ---
:1955 External Reference #:[id number] Author Name Laine Taylor O.D. Address [address] [place] [address] Care Team Providers Name Role Phone Laura Laurent M.D. Primary Care Physician Unavailable Payers Date Identification Numbers Payment Provider Subscriber Policy Number: [id number] [facility] Arline Simmons PayID: [id number] [address] [address] [place] [address] Policy Number: [id number] Medicare - NGS Arline Simmons PayID: [id number] [address] [place] [address] Problems Active Problems Provider Date H/O: depression Onset: Asthma Onset: Nonexudative age-related macular Lanie Taylor O.D. Onset: 08/10/2015 degeneration Combined form of senile cataract Laine Taylor O.D. 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 Onset: degeneration Superficial punctate keratitis Laine Taylor O.D. Onset: 11/16/2018 Tear film insufficiency Laine Taylor O.D. Onset: [...] Use Never Used Drugs Smoking Status Reviewed: 11/16/18 Patient has never smoked Allergies, Adverse Reactions, [...] ER 24HR Fish Oil + D3 Unknown [id number] Capsules Xarelto Unknown 20mg Tablets Tramadol HCL [...] Tablets Procedures Date Code Description Status 10/17/2018 77246 Extracapsular Cataract Extraction W/Intraocular Lens Completed 10/10/2018 13192 Extracapsular Cataract Extraction W/Intraocular Lens Completed 10/08/2018 21017 Ophthalmic Biometry Completed 10/08/2018 81208 Ophthalmic Biometry Completed 10/08/2018 24842 Est Patient Intermediate Exam Completed 09/28/2018 26019 Est Patient Comprehensive Exam Completed 09/19/2018 48458 Scanning Computerized Opthalmic Diagnostic Posterior Seg Completed Retina 09/19/2018 60952 Est Patient Comprehensive Exam Completed 08/22/2018 75518 Patient No Show For Appt Completed 01/24/2018 30347 Scanning Computerized Opthalmic Diagnostic Posterior Seg Completed Retina 01/24/2018 77533 Determination Of Refractive State Completed 01/24/2018 95977 Est Patient Comprehensive Exam Completed 01/10/2018 74261 Rescheduled Appointment Completed 03/10/2017 22628 Scanning Computerized Opthalmic Diagnostic Posterior Seg Completed Retina 03/10/2017 40891 Est Patient Intermediate Exam Completed 09/07/2016 46809 Determination Of Refractive State Completed 09/07/2016 62959 Est Patient Comprehensive Exam Completed 03/09/2016 53172 Scanning Computerized Opthalmic Diagnostic Posterior Seg Completed Retina 03/09/2016 89536 Est Patient Comprehensive Exam Completed 08/10/2015 69462 Scanning Computerized Opthalmic Diagnostic Posterior Seg Completed Retina 08/10/2015 05912 Determination Of Refractive State Completed 08/10/2015 04877 New Patient Comprehensive Exam Completed 06/23/2009 82068 Fluorescein Angiography Completed 06/12/2009 30873 Scanning Laser W/Interp And Report Completed 06/12/2009 85773 New Patient Comprehensive Exam Completed Plan of Treatment 11/16/2018 - Laine Taylor O.D.Z96.1 Presence of intraocular lensComments: CONTINUE THE PREDNISOLONE DROPS RIGHT EYE 2XDAY FOR 5 DAYS, THEN 1X DAY FOR 5 DAYS, THEN STOPCONTINUE ARTIFICIAL TEARS 3-4XDAYCONTINUE THE OINTMENT AT BEDTIME RIGHT EYEH16.141 Punctate keratitis, right eyeH35.3132 Nonexudative age- related macular degeneration, bilateral, inFollow up:6 MOS AMD CHECK You can expect to have your eyes dilated at your next visit. If Dr. Taylor ordersany additional testing, it may require extra time. We recommend that you bring sunglasses, as dilation drops often make you light sensitive until they wear off. We always recommend you bring someone todrive you home if you are uncomfortable driving with your eyes dilated. If you have any questions before your next visit, feel free to call our office at .
--- NOTE | 2018-11-25 18:37 | ED ---
HPI Cardiac - HPI Summary HPI Summary: This patient is a 63 year old F presenting to [facility] accompanied by with a chief complaint of SOB and PENG since earlier today. She did not feel good all day, and seemed to be SOB, although it was difficult to define, more of that when she breathed in, she felt like she couldn't take a full deep breath, and when talking she needed to pause for breathing. Pt usually takes tramadol for pain or PENG, and when she is out of that she takes ibuprofen, but today took Aleve and isn't sure if she took too much. Patient reports cold sweats this morning; cough, PENG in left temporal (4/10 pain), right knee pain, cramping in calf (a few nights ago, not today). Patient denies speech issues, current calf pain and weakness. She has not fallen. Pt has PMH of Pulmonary Embolism and is on Xarelto. She has a family hx of blood clots (2 siblings), and family hx of cardiac disease. Pt's BP at triage was 190/126 but in the room has decreased spontaneously to 158/100. Patients PCP is Dr. Laurent. Vital signs while in room: HR 97 bpm, BP 158/100 O2 sat 99% Home Medications Medication Instructions Recorded Confirmed Type Deer-3 Fatty Acids/Fish Oil 1,500 mg PO QAM 12/17/16 10/17/18 History [Deer 3 1,000 mg Softgel] Acetaminophen TAB* [Tylenol TAB*] 650 mg PO Q6H PRN tab 01/12/18 10/17/18 Rx Meclizine HCl [Dramamine Less 25 mg PO TID #30 tablet 01/29/18 10/17/18 Rx Drowsy] Venlafaxine EXT RELEASE CAP* 37.5 mg PO QAM 01/29/18 10/17/18 History [Effexor Xr CAP*] Albuterol 2.5MG/3ML (0.083%)* 2.5 mg INH Q4H PRN 10/05/18 10/17/18 History [Ventolin 2.5 MG/3 ML NEB.MEI*] Albuterol Sulfate [Proventil Hfa] 2 puff INH QID PRN 10/05/18 10/17/18 History Rivaroxaban TAB(*) [Xarelto 20 mg] 20 mg PO QPM 10/05/18 10/17/18 History Tramadol HCl 50 mg PO BID 10/05/18 10/17/18 History - History of Current Complaint Chief Complaint: EDHypertension Stated Complaint: DIFFICULTY BREATHING/HEADACHE PER PT Time Seen by Provider: 11/25/18 18:02 Hx Obtained From: Patient, Family/Contract Processor - Onset/Duration: Started Hours Ago Timing: Constant Initial Severity: Moderate Current Severity: Moderate Pain Intensity: 4 - headache, although nurse at triage wrote zero for pain Pain Scale Used: 0-10 Numeric Character: Other: - no chest pain at this time, but SOB, PENG, "not feeling well" and severe HTN noted at triage Aggravating Factor(s): Deep Breaths - aggravate the SOB Alleviating Factor(s): Nothing Associated Signs and Symptoms: Positive: Headaches, Shortness of Breath, Chills , Cough, Other: - BP at triage 190/126. Negative: Weakness, Calf Pain/Swelling - Additional Pertinent History Primary Care Physician: WENCESLAO - Allergy/Home Medications Allergies/Adverse Reactions: Allergies Allergy/AdvReac Type Severity Reaction Status Date / Time codeine AdvReac GI Upset Verified 10/17/18 07:07 Home Medications: Home Medications Meclizine HCl [Dramamine Less Drowsy] 25 mg PO TID PRN 11/25/18 [History Confirmed 11/25/18] PMH/Surg Hx/FS Hx/Imm Hx Previously Healthy: No Endocrine/Hematology History: Denies: Hx Diabetes Cardiovascular History: Reports: Hx Embolism - PE on Xarelto Denies: Hx Hypertension Respiratory History: Reports: Hx Asthma - rescue meds, Hx Pulmonary Embolism - Large Saddle 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/2017-hospitalized Denies: Hx Sleep Apnea, Other Respiratory Problems/Disorders GI History: Denies: Hx Crohn's Disease, Hx Gastroesophageal Reflux Disease, Hx Irritable Bowel, Hx Ulcer, Other GI Disorders History: Denies: Hx Renal Disease, Other Problems/Disorders Musculoskeletal History: Reports: Hx Arthritis - Back, hands, neck Denies: Other Musculoskeletal History Sensory History: Reports: Hx Cataracts, Hx Contacts or Glasses Denies: Hx Glaucoma, Hx Hearing Aid Opthamlomology History: Reports: Hx Cataracts, Hx Contacts or Glasses Denies: Hx Glaucoma Neurological History: Reports: Other Neuro Impairments/Disorders - "pinched nerve" in neck Denies: Hx Nerve Disease Psychiatric History: Reports: Hx Anxiety, Hx Depression - Surgical History Surgery Procedure, Year, and Place: Tubal ligation. Sinus surgery Hx Anesthesia Reactions: Yes - blood pressure went down after tubal ligation Infectious Disease History: No Infectious Disease History: Denies: Hx Clostridium Difficile, Hx Hepatitis, Hx Human Immunodeficiency Virus (HIV), Hx of Known/Suspected MRSA, Hx Shingles, Hx Tuberculosis, Traveled Outside the [place] in Last 30 Days - Family History Known Family History: Positive: Cardiac Disease, Hypertension, Other - blood clots (2 siblings) - Social History Lives: With Family Alcohol Use: Daily Hx Substance Use: No Substance Use Type: Reports: None Hx Tobacco Use: No Smoking Status (MU): Never Smoked Tobacco Review of Systems Positive: Chills Cardiovascular: Negative Positive: Shortness Of Breath, Cough Gastrointestinal: Negative Positive: no symptoms reported Musculoskeletal: Other - pos - right knee pain, leg cramping a few days ago Negative: Other - neg - calf pain Skin: Negative Positive: Headache. Negative: Weakness, Slurred Speech Psychological: Normal All Other Systems Reviewed And Are Negative: Yes Physical Exam - Summary Physical Exam Summary: Appearance: moderately ill-appearing, moderate pain distress due to PENG, well- nourished Skin: Warm, color reflects adequate perfusion, dry Head: Normal Head/Face inspection, atraumatic Eyes: Conjunctiva clear ENT: Normal inspection Neck: Supple, no nodes, no JVD Respiratory: gasping respirations intermittently but able to speak full sentences, not SOB at rest, no accessory muscle of respiration, diminished breath sounds throughout, no wheezes. Cardio: RRR, No murmur, pulses normal, brisk capillary refill Abdomen: Soft, nontender Bowel sounds: Present Musculoskeletal: Strength Intact/ROM intact, no calf tenderness, no edema. Psychological: Normal Neuro: Alert, muscle tone normal, no focal deficit, speech clear and coherent, + facial symmetry. Triage Information Reviewed: Yes Vital Signs On Initial Exam: Initial Vitals Temp Pulse Resp BP Pulse Ox 99.0 F 97 16 190/126 99 11/25/18 17:33 11/25/18 17:33 11/25/18 17:33 11/25/18 17:33 11/25/18 17:33 Vital Signs Reviewed: Yes - [place] Coma Scale Best Eye Response: 4 - Spontaneous Best Motor Response: 6 - Obeys Commands Best Verbal Response: 5 - Oriented Coma Scale Total: 15 Diagnostics - Vital Signs Vital Signs Temp Pulse Resp BP Pulse Ox 11/25/18 18:01 96 11/25/18 17:54 100 158/100 98 11/25/18 17:33 99.0 F 97 16 190/126 99 - Laboratory Lab Results: Lab Results 11/25/18 11/25/18 11/25/18 Range/Units 17:47 17:47 17:47 WBC 8.8 (3.5-10.8) 10^3/uL RBC 4.83 (3.70-4.87) 10^6 /uL Hgb 15.4 (12.0-16.0) g/dL Hct 45 (35-47) % MCV 94 (80-97) fL MCH 32 H (27-31) pg MCHC 34 (31-36) g/dL RDW 14 (10-15) % Plt Count 249 (150-450) 10^3/uL MPV 8.1 (7.4-10.4) fL Neut % (Auto) 66.0 % Lymph % (Auto) 28.2 % Harmon % (Auto) 4.2 % Eos % (Auto) 1.0 % Baso % (Auto) 0.6 % Absolute Neuts (auto) 5.8 (1.5-7.7) 10^3/ul Absolute Lymphs (auto) 2.5 (1.0-4.8) 10^3/ul Absolute Monos (auto) 0.4 (0-0.8) 10^3/ul Absolute Eos (auto) 0.1 (0-0.6) 10^3/ul Absolute Basos (auto) 0.0 (0-0.2) 10^3/ul Absolute Nucleated RBC 0.0 10^3/ul Nucleated RBC % 0.0 INR (Anticoag Therapy) 1.06 (0.82-1.09) Sodium 141 (135-145) mmol/L Potassium 4.6 (3.5-5.0) mmol/L Chloride 106 (101-111) mmol/L Carbon Dioxide 27 (22-32) mmol/L Anion Gap 8 (2-11) mmol/L BUN 11 (6-24) mg/dL Creatinine 0.86 (0.51-0.95) mg/dL Est GFR ( Amer) 80.1 (>60) Est GFR (Non-Af Amer) 66.2 (>60) BUN/Creatinine Ratio 12.8 (8-20) Glucose 102 H (70-100) mg/dL Calcium 9.9 (8.6-10.3) mg/dL Total Bilirubin 0.40 (0.2-1.0) mg/dL AST 18 (13-39) U/L ALT 13 (7-52) U/L Alkaline Phosphatase 108 H (34-104) U/L Troponin I 0.00 (<0.04) ng/mL Total Protein 7.5 (6.4-8.9) g/dL Albumin 4.4 (3.2-5.2) g/dL Globulin 3.1 (2-4) g/dL Albumin/Globulin Ratio 1.4 (1-3) Result Diagrams: 11/25/18 17:47 11/25/18 17:47 Lab Statement: Any lab studies that have been ordered have been reviewed, and results considered in the medical decision making process. - Radiology CXR Radiology Interpretation Completed By: ED Physician Summary of Radiographic Findings: CXR reveals, per ED physician, no acute processes. Pending official radiology report. - CT Brain CT CT Interpretation Completed By: Radiologist Summary of CT Findings: Brain CT reveals, per radiologist, IMPRESSION: 1. No acute intracranial abnormality. 2. Mild chronic small vessel ischemic disease. ED physician has reviewed this radiology report. Chest/Thorax CTA CT Interpretation Completed By: Radiologist Summary of CT Findings: Chest/Thorax CTA reveals, per radiologist, IMPRESSION: 1. No pulmonary emboli. No additional findings to correlate with patient's symptomatology. 2. Stable left renal angiomyolipoma. No followup imaging indicated per ACR guidelines. ED physician has reviewed this radiology report. - EKG 1738 Cardiac Rate: Tachycardia - 100 bpm EKG Rhythm: Sinus Rhythm ST Segment: Non-Specific Ectopy: None EKG Comparison: Other - compared with 01/29/18, less T-wave inversion in V1 and V2 Summary of EKG Findings: EKG at 1738, reveals sinus tachycardia 100 bpm, nml HIRO CT, nml QTc, no acute abnormalities; compared with 01/29/18 less T-wave inversion in V1 and V2. ED MD has reviewed and interpreted this EKG. Re-Evaluation - Re-Evaluation First Eval Re-Evaluation Time: 21:00 Change: Improved Comment: HR 90 bpm, O2 Sat 98%, BP 154/111. PENG is gone, vague discomfort. Hopes to be discharged. Second Eval Re-Evaluation Time: 21:53 Change: Improved Comment: BP 150/65 after metoprolol succinate XL 50mg and acetaminophen 975mg. Pt feels well and wants to go home. Disposition - Course Course Of Treatment: 63 yo F with hx PE on xarelto c/o SOB and PENG and presents with BP elevation of 190/126, which decreased spontaneously to 158/100 range, however pt was given a one time dose of metoprolol succinate XL 50mg to prevent further HTN urgency. This medication was chosen due to pt's continued elevated pulse in the 90's-100's range. Pt was also given 975mg acetaminophen with good relief of her PENG, which likely also contributed to decreased BP. Physical exam findings upon initial evaluation showed moderate pain distress due to PENG, cardiac exam normal, Lung exam with gasping respirations noted intermittently but pt able to speak full sentences, no SOB at rest, no accessory muscle of respiration, +diminished breath sounds throughout, no wheezes. No calf pain or edema. EKG at 1738, reveals sinus tachycardia 100 bpm, nml AV/ IV CT, nml QTc, no acute abnormalities; and compared with 01/29/18 there is lesser degree of T- wave inversion in V1 and V2. Brain CT reveals, per radiologist, IMPRESSION: 1. No acute intracranial abnormality. 2. Mild chronic small vessel ischemic disease. Chest/Thorax CTA reveals, per radiologist, IMPRESSION: 1. No pulmonary emboli. No additional findings to correlate with patient's symptomatology. 2. Stable left renal angiomyolipoma. No followup imaging indicated per ACR guidelines. CXR reveals, per ED physician, no acute processes. Pending official radiology report. Pt medications reviewed this visit. Pt is not on an antihypertensive medication. Nurses notes reviewed. Allergies noted. Blood work obtained. Troponin is 0.0 x 2, Glucose is 102, Alkaline Phosphatase is 108. UA obtained. Ur Specific Laurel is 1.005, urine blood is 1+, Ur Squamous Epith Cells are present. Patient will be discharged with instructions to follow up with Dr. Laurent, particularly for the elevated BP , and also for the angiomyolipoma of the left kidney. Pt is given copies of all of her complete imaging reports. The patient is agreeable with this plan. - Differential Dx - Cardiopulmonary Differential Diagnoses - Cardiopulmonary: Acute Dyspnea, Asthma, Bronchitis, Hypoxia, Lower Resp Infection, Pulmonary Edema, Pulmonary Embolism, Other - hemorrhagic stroke - Diagnoses Provider Diagnoses: Hypertensive urgency, Hematuria, Headache, Hx pulmonary embolism, Angiomyolipoma of left kidney, On rivaroxaban therapy Discharge ED - Sign-Out/Discharge Documenting (check all that apply): Patient Departure - Discharge Patient Received Moderate/Deep Sedation with Procedure: No - Discharge Plan Condition: Stable Disposition: HOME Patient Education Materials: Hypertension (ED) Forms: *Work Release Referrals: Laura Laurent MD [Primary Care Provider] - 2 Days Additional Instructions: Your blood pressure was very elevated when you were in the ER with the first reading 190 /126. Your blood pressure then settled into the 152/110 range with no treatment for several readings. Your pulse was 90 at this time. You were given metoprolol succinate XL 50mg once in the ER. You were also given acetaminophen 975mg for a headache. We gave you copies of your CT's. You did not have a brain hemorrhage on your CT brain, and you did not have a pulmonary embolus on the CTA of your chest. You had trace rbc's and 1+ blood in your urine and an angiolipoma of your kidney that per radiology criteria did not need further imaging, however Dr. Laurent will want to follow this. You had two troponin levels that were negative, three hours apart. Please follow up with Dr. Laurent this week regarding your blood pressure. We are not prescribing medication today, but she may want to prescribe medication. Return to the ER if you have any new or worsening symptoms. - Billing Disposition and Condition Condition: STABLE Disposition: Home - Attestation Statements Document Initiated by Scribe: Yes Documenting Scribe: Namrata Villavicencio Provider For Whom Kadeem is Documenting (Include Credential): Dr. Mely Luna MD Scribe Attestation: Namrata Lui, scribed for Dr. Mely Luna MD on 12/17/18 at 1230. Scribe Documentation Reviewed: Yes Provider Attestation: The documentation as recorded by the scribe, Namrata Villavicencio accurately reflects the service I personally performed and the decisions made by me, Dr. Mely Luna MD Status of Kadeem Document: Viewed
[2018-11-25 18:58] LABS: CKMB ng/mL 1.7 ng/mL (0.6-6.3)
[2018-11-25] MEDS ORDERED: Iohexol 350* (CONTRAST) 500 ML MDV IV ONE (18:58)
[2018-11-25 19:00] LABS: Activated Partial Thrombo Time 36.9 seconds (26.0-38.0)
[2018-11-25 19:14] LABS: Urine Appearance Clear; Urine Bacteria Absent (Absent); Urine Bilirubin Negative (Negative); Urine Blood 1+ (Negative); Urine Color Straw; Urine Glucose Negative (Negative); Urine Ketones Negative (Negative); Urine Nitrite Negative (Negative); Urine Protein Negative (Negative); Urine Red Blood Cell Trace(0-2/hpf) (Absent); Urine Specific Gravity 1.005 (1.010-1.030); Urine Squamous Epithelial Cell Present (Absent); Urine Urobilinogen Negative (Negative); Urine White Blood Cell Absent (Absent)
[2018-11-25 19:23] LABS: TSH (Thyroid Stimulating Horm) 1.21 mcIU/mL (0.34-5.60)
[2018-11-25] MEDS ORDERED: Acetaminophen TAB* 325 MG PO ONE (21:25)
[2018-11-25] MEDS ORDERED: Metoprolol Succinate XL TAB* 50 MG PO ONE (21:27)
[2018-11-25 22:19] VITALS: BP 151/95
== END 2018-11-25 22:33 | disposition home or self-care (01) ==
LOC: ED 17:29
DX: I16.0 Hypertensive urgency (principal); R31.9 Hematuria, unspecified; R51 Headache; Z86.711 Personal history of pulmonary embolism; F41.9 Anxiety disorder, unspecified; F32.9 Major depressive disorder, single episode, unspecified; Z88.5 Allergy status to narcotic agent; Z83.2 Family history of diseases of the blood and blood-forming organs and certain disorders involving the immune mechanism
CPT/HCPCS: 36415; 70450; 71045; 71275; 80053; 81003; 81015; 82553; 83880; 84443; 84484; 85025; 85610; 85730; 93005; 99284; A9270-GY; Q9967